=== PATIENT | male | born 1945 | race Caucasian/White ===

== ENCOUNTER → 2022-02-22 | Outpatient (CLI) | payer MEDICARE | END | disposition home or self-care (01) | LOC: LABPAT 11:30 | PROVIDERS: ATTEND Orthopaedic Surgery Orthopaedic Surgery of the Spine | DX: Z53.9 Procedure and treatment not carried out, unspecified reason (principal) ==

== ENCOUNTER → 2022-02-24 | Outpatient (CLI) | payer MEDICARE ==
[2022-02-24 13:47] LABS: Partial Thromboplastin Time 24.8 sec (22.0-30.0); Prothrombin Time 10.6 sec (9.0-12.0)
[2022-02-24 18:38] LABS: Basophils # (A) 0.04 X 10*3/uL (0.00-0.10); Basophils % (A) 0.7 %; Eosinophils # (A) 0.22 X 10*3/uL (0.04-0.35); Eosinophils % (A) 3.9 %; HCT 41.5 % (39.6-50.0); HGB 13.5 g/dL (13.0-17.0); Immature Grans, Automated 0.2 %; Lymphocytes # (A) 1.16 X 10*3/uL (0.90-5.00); Lymphocytes % (A) 20.8 %; MCH 30.2 pg (27.0-32.0); MCHC 32.5 g/dL (32.0-37.0); MCV 92.8 fL (80.0-97.0); Mean Platelet Volume 10.8 fL (9.5-12.2); Monocytes # (A) 0.56 X 10*3/uL (0.20-1.00); NRBC Per 100 WBC 0 /100 WBCS (0.0-0.0); Neutrophils % (A) 64.4 %; Platelet Count 226 X 10*3/uL (140-440); RBC 4.47 X 10*6/uL (4.40-5.60); RDW 12.7 % (11.5-14.5); WBC 5.59 X 10*3/uL (4.50-10.00)
[2022-02-24 19:18] LABS: Albumin 4.3 g/dL (3.8-4.9); Albumin/Globulin Ratio 1.97 (1.60-3.17); Anion Gap 11.4 mmol/L (10.00-18.00); BUN/Creat Ratio 19.4 Ratio (12.00-20.00); Blood Urea Nitrogen 18.6 mg/dL (9.0-27.0); Calcium 9.6 mg/dL (8.7-10.3); Carbon Dioxide 24.2 mmol/L (20.0-27.5); Globulin 2.2 g/dL (1.6-3.3); Non-African American GFR(CKD) 77.7 (60.0-200.0); Potassium 4.2 mmol/L (3.5-5.5); Total Bilirubin 0.3 mg/dL (0.30-1.20); Total Protein 6.5 g/dL (6.2-8.2)
[2022-02-24 20:34] LABS: Appearance,Urine Clear (Clear); Bilirubin,Urine Negative (Negative); Blood,Urine Negative (Negative); Color,Urine Yellow (Yellow); Ketones,Urine Negative (Negative); Nitrite,Urine Negative (Negative); PH, Urine 6.5 (5.0-8.0); Specific Gravity,Urine 1.022 (1.001-1.030); Urobilinogen,Urine 0.2 (0.2,1.0)
== END | disposition home or self-care (01) ==
LOC: LABPAT 12:13
PROVIDERS: ATTEND Orthopaedic Surgery Orthopaedic Surgery of the Spine
DX: Z01.812 Encounter for preprocedural laboratory examination (principal); G95.9 Disease of spinal cord, unspecified; M50.03 Cervical disc disorder with myelopathy, cervicothoracic region
CPT/HCPCS: 80053; 81003; 85025; 85610; 85730

== ENCOUNTER 2022-03-06 06:22 | Inpatient (IN) | payer MEDICARE ==
[~2022-03-06 06:22] MED LIST: ceFAZolin 1,000 MG in SODIUM CHLORIDE 0.9% IRRIGATIO 1,000 ML IRRIGATION PRN
[2022-03-06] MEDS ORDERED: DEXAMETHASONE SOD PHOSPHATE 4 MG/ML 1 ML VIAL IV ONE (06:26)
[2022-03-06] MEDS ORDERED: LIDOCAINE 1% (10MG/ML) FOR IV START INTRADERMA PRN (06:26)
[2022-03-06] MEDS ORDERED: ONDANSETRON 4 MG/2 ML VIAL IVP ONE (06:26)
[2022-03-06] MEDS ORDERED: METOCLOPRAMIDE 5 MG/ML 2 ML VIAL IVP PRN (06:26)
[2022-03-06] MEDS ORDERED: HYDROmorphone 0.5 MG/0.5 ML SYRINGE IVP PRN ×2 (06:26→10:38)
[2022-03-06] MEDS: LACTATED RINGERS 1,000 ML IV SCH (07:18)
[2022-03-06] MEDS ORDERED: LIDOCAINE 2% INJ 20 MG/ML (2 ML VIAL) ONE ×2 (07:29)
[2022-03-06] MEDS ORDERED: DEXAMETHASONE SOD PHOSPHATE 10 MG/ML 1 ML VIAL ONE ×2 (07:29)
[2022-03-06] MEDS ORDERED: ROCURONIUM 10 MG/ML (5 ML VIAL) IV ONE ×2 (07:29)
[2022-03-06] MEDS ORDERED: KETAMINE 10 MG/ML 20 ML VIAL ONE ×2 (07:29)
[2022-03-06] MEDS ORDERED: GLYCOPYRROLATE 0.2 MG/ML 2 ML VIAL ONE ×2 (07:29)
[2022-03-06] MEDS ORDERED: NEOSTIGMINE 1 MG/ML 10 ML VIAL ONE ×2 (07:29)
[2022-03-06] MEDS ORDERED: PROPOFOL 10 MG/ML 20 ML VIAL IV ONE ×2 (07:29)
[2022-03-06] MEDS ORDERED: fentaNYL (PF) 50 MCG/ML 2 ML AMP ONE ×2 (07:29)
[2022-03-06] MEDS ORDERED: HYDROmorphone (PF) 1 MG/ML ONE ×2 (07:29)
[2022-03-06] MEDS ORDERED: SUCCINYLCHOLINE CHLORIDE 100 MG/5 ML SYR IV ONE ×2 (07:29)
[2022-03-06] MEDS ORDERED: MIDAZOLAM 2 MG/2 ML VIAL ONE ×2 (07:29)
[2022-03-06] MEDS ORDERED: ePHEDrine 50 MG/ML 1 ML VIAL ONE ×2 (07:29)
[2022-03-06] MEDS ORDERED: LIDOCAINE 1%-EPI 1:100,000 20 ML VIAL SQ ONE (08:07)
[2022-03-06] MEDS ORDERED: GELATIN SPONGE,ABSORB (LARGE) 1 EACH SPONGE MISCELLANE ONE (08:37)
[2022-03-06] MEDS ORDERED: THROMBIN (BOVINE) 5,000 UNIT VIAL TOPICAL ONE (08:38)
[2022-03-06] MEDS ORDERED: ACETAMINOPHEN TAB 325 MG TAB PO PRN (10:38)
[2022-03-06] MEDS ORDERED: CYCLOBENZAPRINE 10 MG TAB PO PRN (10:38)
[2022-03-06] MEDS ORDERED: ONDANSETRON 4 MG/2 ML VIAL IVP PRN (10:38)
[2022-03-06] MEDS ORDERED: BENZOCAINE/MENTHOL LOZENG 1 EACH LOZENGE MUCOUS MEM PRN (10:38)
[2022-03-06] MEDS ORDERED: HYDROmorphone 1 MG/ML 1 ML SYRINGE IVP PRN (10:38)
[2022-03-06] MEDS ORDERED: HYDROcodone/APAP 5-325MG 1 EACH TAB PO PRN (10:38)
[2022-03-06] MEDS ORDERED: ACETAMINOPHEN TAB 500 MG TAB PO PRN (10:41)
--- NOTE | 2022-03-06 10:49 | P.OP ---
Date of Procedure: 03/06/22 Preoperative Diagnosis: Spinal stenosis C3 4 C4 5 C5 6, degenerative disc disease, neck pain, cervical myelopathy, upper extremity radiculopathy, upper extremity weakness Postoperative Diagnosis: Same Anesthesia: GETA Pathology: none sent Condition: stable Disposition: PACU Description of Procedure: BRIEF OPERATIVE NOTE Preoperative Diagnosis:Spinal stenosis C3 4 C4 5 C5 6, degenerative disc disease, neck pain, cervical myelopathy, upper extremity radiculopathy, upper extremity weakness Postoperative Diagnosis:Spinal stenosis C3 4 C4 5 C5 6, degenerative disc disease, neck pain, cervical myelopathy, upper extremity radiculopathy, upper extremity weakness Procedure: Anterior cervical decompression with discectomy and fusion C3 4 C4 5 C5 6 Placement of interbody graft C3 4 C4 5 C5 6 Application of anterior cervical plate C3 4 C4 5 C5 6 Surgeon: Dr. Kramer Supervisor Special Services: altagracia Shoemaker is present throughout the majority of the the case persistence during positioning, dissection, exposure, visualization, and all crucial elements of the case Estimated blood loss: Approximately 75 mL Complications: None apparent Components implanted: K2M [place] anterior cervical plate system with Vikos interbody allograft bone graft Disposition: To recovery room in good stable condition. OPERATIVE INDICATIONS The patient has had long-standing issues in their neck and upper extremities. He's been having worsening of his symptoms despite aggressive conservative treatment. He is not having significant changes at his cervical spine on imaging with cervical stenosis C3 4 C4 5 C5 6 severe degenerative disc disease at evidence of early myelomalacia which correlated with some signs of myelopathy. The patient has been through conservative treatment. He was having worsening of his symptoms we discussed the possibility of surgical intervention. We discussed various treatment options including surgery, and the patient wishes to proceed with surgery We discussed the risk, patient's alternatives and benefits of surgery including but not limited to, risk of bleeding risk of infection, risk of need for further surgery, risk of decreased, loss of motion, muscle function, malunion nonunion, hardware failure, nerve damage, paralysis, heart attack, and . OPERATIVE SUMMARY After discussing all the risks, patient alternatives and benefits at length, the patient elected to proceed with surgical intervention, signed informed consent, and presented for their procedure. The patient was seen and examined in the preoperative holding area and the surgical site was marked. The patient was given antibiotics and brought to the operating room. The patient was positioned on the operating room table in a supine position being careful to pad any bony prominences and pressure points. The patient was sedated and intubated by anesthesia in standard fashion. Once the airway and C- spine were stabilized the patient's arms were padded and tucked at her side, with her shoulders gently taped. The head was placed in a donut pad with the neck in good neutral alignment and position. We were careful to maintain the patient's cervical spine and good neutral alignment and position throughout. The patient was prepped and draped in a normal standard fashion. An appropriate timeout and keystone protocol performed. We were able to proceed with the surgery. The local wound area was infiltrated with local anesthetic. An incision was made transversely approximately 2-1/2 cm over the appropriate levels at C5. Dissection was taken down subcutaneously to the level of the platysma which was split in line with its fibers. Dissection was taken with a carotid approach, with the trachea and esophagus medial and the carotid sheath laterally. We dissected down to the anterior surface of the vertebral bodies. Intraoperative x-ray was taken which showed a marker at the appropriate level of C5 6. With the appropriate level positively confirmed, we were able to proceed with discectomy at the appropriate levels starting at C3 4 C4 5 C5 6. All of the operative levels were exposed appropriately. There are large anterior cervical osteophytes at each of these levels and they're removed. The patient had all their twitches back, and there was no evidence of recurrent laryngeal issue. The wound was copiously irrigated and suctioned dry as had been done periodically throughout the case. At the appropriate level/levels, starting at C3 4 C4 5 C5 6 . I established an annulotomy with an 11 blade scalpel. A discectomy was performed with a combination of pituitary rongeurs, curettes, a high-speed bur, and Kerrison rongeurs. The posterior longitudinal ligament was taken down as were any posterior osteophytes. This gave good central and bilateral foraminal decompression. There is no evidence of any dural tear or leak. The endplates were prepared with a high-speed bur. With the endplates in good parallel position, I was able to size for the appropriate size interbody graft. The wound was irrigated and suctioned dry the graft was prepared and malleted into position. It had good alignment and position with the anterior surface flush with the anterior surface of the vertebral bodies. This was done similarly the appropriate levels. With the grafts intact, I was able to measure and contour and appropriate sized plate. The plate was positioned at the midline over the appropriate levels. Screw holes were established with a hand drill and drill guide. Screws were placed in good alignment and position with excellent bony purchase. They were seated under the locking device. The construct was checked and found to be stable. Intraoperative x-ray was taken which showed good alignment and position of the implants at the appropriate levels. There was no evidence of any dural tear or leak. Good hemostasis was maintained. The wound was copiously irrigated and suctioned dry as had been done periodically throughout the case. The platysma was closed with absorbable suture. The subcutaneous tissue was closed. The subcuticular tissue was closed with absorbable suture. The wound was cleaned and dried and dressed appropriately. A soft cervical collar was placed appropriately. The patient was woken up by anesthesia, extubated, transferred back gently to their hospital bed and brought to the recovery room in good stable condition. The patient will be admitted to the hospital for appropriate postoperative care, medical management and monitoring. We will continue to follow them closely about the postoperative course.
[2022-03-06] MEDS: SODIUM CHLORIDE 0.9% 1,000 ML IV SCH (14:01)
[2022-03-06] MEDS ORDERED: PSYLLIUM HUSK 100% 6 GM PACKET PO SCH (21:00)
[2022-03-06] MEDS ORDERED: MONTELUKAST 10 MG TAB PO SCH (21:00)
[2022-03-06] MEDS ORDERED: ATORVASTATIN 40 MG TAB PO SCH (21:00)
[2022-03-06] MEDS: METOPROLOL TARTRATE 50 MG TAB PO SCH (22:25)
[2022-03-07] MEDS: SODIUM CHLORIDE 0.9% 1,000 ML IV SCH ×2 (00:37→08:04)
--- NOTE | 2022-03-07 01:32 | XR ---
EXAMINATION TYPE: XR cervical spine 1V DATE OF EXAM: 03/06/2022 COMPARISON: Unavailable INDICATION: Needle placement TECHNIQUE: Single lateral view of the cervical spine FINDINGS: Marked degenerative changes of the cervical spine. A needle was placed opposite C5-6 level. The patie nt is intubated. Sternotomy sutures. IMPRESSION: As above.
--- NOTE | 2022-03-07 01:36 | XR ---
EXAMINATION TYPE: XR cervical spine 1V DATE OF EXAM: 03/06/2022 COMPARISON: X-ray performed earlier the same day INDICATION: Hardware placement TECHNIQUE: Single lateral view of the cervical spine FINDINGS: Interval anterior cervical spine fixation from C3 down to C6 with multilevel disc prosthesis. Acute p ostoperative changes with prevertebral soft tissue swelling. The patient is intubated. IMPRESSION: As above.
[2022-03-07] MEDS ORDERED: PANTOPRAZOLE 40 MG TABLET PO SCH (07:30)
[2022-03-07 08:04] VITALS: BP 169/69; PULSE 60; RESP 20; TEMP 98.2
[2022-03-07] MEDS: LACTATED RINGERS 1,000 ML IV SCH (08:04)
[2022-03-07] MEDS: METOPROLOL TARTRATE 50 MG TAB PO SCH (08:10)
--- NOTE | 2022-03-07 08:40 | P.DS ---
Providers Date of admission: 03/06/22 06:22 Expected date of discharge: 03/07/22 Attending physician: Ben Kramer Primary care physician: Olga Bird - Discharge Diagnosis(es) (1) Cervical myelopathy Current Visit: Yes Status: Acute (2) Cervical stenosis of spinal canal Current Visit: Yes Status: Acute (3) Degenerative cervical disc Current Visit: Yes Status: Acute (4) Upper extremity weakness Current Visit: Yes Status: Acute (5) Radiculopathy affecting upper extremity Current Visit: Yes Status: Acute (6) Status post cervical spinal fusion Current Visit: Yes Status: Acute (7) Cervicalgia Current Visit: Yes Status: Acute (8) Hypertension Current Visit: Yes Status: Acute (9) Hyperlipidemia Current Visit: Yes Status: Acute (10) Coronary artery disease Current Visit: Yes Status: Acute (11) History of heart artery stent Current Visit: Yes Status: Acute (12) History of shortness of breath Current Visit: Yes Status: Acute (13) History of myocardial infarction Current Visit: Yes Status: Acute Hospital Course: This is a pleasant 76-year-old male who presented with C3-4, C4-5, and C5-6 spinal stenosis, cervical degenerative disc disease, cervicalgia, cervical myelopathy, upper extremity radiculopathy and upper extremity weakness who failed outpatient conservative therapy. He was admitted for a C3-4, C4-5, and C5-6 anterior cervical decompression and fusion. The patient tolerated the procedure well and did well postoperatively. His pain has been well-controlled. He feels he has increased sensation in his hands already postoperatively. He does feel his ambulation has been better. He has a history of difficulty with urination postoperatively. Salvador catheter continues to be inserted. This will be discontinued this morning. If the patient is able to void independently today, he is ready for discharge home today. Condition on day of discharge stable. Patient will be discharged home. Patient was cleared preoperatively for surgery by Dr. Bird. Patient currently denies any nausea, vomiting, fever, or chills. Patient is eating and voiding freely without difficulty. Patient may shower Optifoam dressing intact. Patient may remove Optifoam dressing in 3 days and shower without a dressing at that time. Patient may wear his soft cervical collar for comfort support as needed. Patient should refrain from driving until at least after their first follow-up appointment in the office. Patient should avoid excessive neck flexion, extension, rotation, and lateral sidebending; no overhead lifting; no lifting greater than 10 pounds. Patient does have a history of recent right total shoulder arthroplasty and does have some reduced range of motion with weakness of the right shoulder. Patient states prior to his admission to the hospital medication for pain control was sent to his regular pharmacy. I do not see these medications documented as sent or as listed on his home medication list. MAPS has been reviewed today, 03/07/2022, with an Overall Overdose Risk Score of 280. An "Opiod Start Talking" Form has been signed and placed in the patient's chart. A prescription has been written for Tippo 5 mg/325 mg 1 every 4 hours as needed for pain, dispensed #42. Patient is also given a prescription for cyclobenzaprine 10 mg 1 3 times a day as needed for muscle spasm, dispensed #60. Patient's other medical diagnoses include hypertension, hyperlipidemia, coronary artery disease, history of cardiac stent, history of shortness of breath, and history of myocardial infarction. Physical Exam on day of discharge: Patient is awake, alert, and oriented 3 Vital signs stable Good chest excursion with deep inspiration and expiration Adequate range of motion of the cervical spine with adequate flexion, extension, and bilateral rotation Patient is able to perform active range of motion of the bilateral upper extremities but does have weakness with his right shoulder Soft cervical collar intact and is removed during physical examination Incision is clean, dry, and intact; no erythema, purulence, or signs of infection Mild generalized swelling around the surgical site Optifoam dressing intact Procedures: C3-4, C4-5, and C5-6 anterior cervical decompression and fusion Patient Condition at Discharge: Stable Plan - Discharge Summary Discharge Rx Participant: No New Discharge Prescriptions: New Cyclobenzaprine [Flexeril] 10 mg PO TID PRN #60 tab PRN Reason: Muscle Spasm HYDROcodone/APAP 5-325MG [Tippo 5] 1 each PO Q4HR PRN #42 tab PRN Reason: Pain No Action Esomeprazole Magnesium [NexIUM] 40 mg PO DAILY Lisinopril [Zestril] 40 mg PO DAILY Aspirin 81 mg PO DAILY Metoprolol Tartrate [Lopressor] 100 mg PO BID Multivitamin [Men's Multi-Vitamin] 1 each PO DAILY Montelukast [Singulair] 10 mg PO HS Clopidogrel [Plavix] 75 mg PO DAILY Psyllium Husk [Metamucil] 0.4 gm PO HS Ipratropium [place] 0.06%Nasal [Atrovent Nasal 0.06%] 2 spray EA NOSTRIL DAILY Cetirizine HCl [Zyrtec] 10 mg PO DAILY Atorvastatin [Lipitor] 40 mg PO HS Acetaminophen [Tylenol] 500 mg PO Q4-6H PRN PRN Reason: Pain Discharge Medication List Aspirin 81 mg PO DAILY 06/19/14 [History] Esomeprazole Magnesium [NexIUM] 40 mg PO DAILY 06/19/14 [History] Lisinopril [Zestril] 40 mg PO DAILY 06/19/14 [History] Metoprolol Tartrate [Lopressor] 100 mg PO BID 06/19/14 [History] Multivitamin [Men's Multi-Vitamin] 1 each PO DAILY 06/19/14 [History] Atorvastatin [Lipitor] 40 mg PO HS 03/02/22 [History] Cetirizine HCl [Zyrtec] 10 mg PO DAILY 03/02/22 [History] Clopidogrel [Plavix] 75 mg PO DAILY 03/02/22 [History] Ipratropium [place] 0.06%Nasal [Atrovent Nasal 0.06%] 2 spray EA NOSTRIL DAILY 03/02/22 [History] Montelukast [Singulair] 10 mg PO HS 03/02/22 [History] Psyllium Husk [Metamucil] 0.4 gm PO HS 03/02/22 [History] Acetaminophen [Tylenol] 500 mg PO Q4-6H PRN 03/06/22 [History] Cyclobenzaprine [Flexeril] 10 mg PO TID PRN #60 tab 03/07/22 [Rx] HYDROcodone/APAP 5-325MG [Tippo 5] 1 each PO Q4HR PRN #42 tab 03/07/22 [Rx] Follow up Appointment(s)/Referral(s): Rosales Torres, FREDERIC [PHYSICIAN [employer]] - 2 Weeks (Patient may follow-up with Rosales Torres PA-C or Dr. Linwood Kramer at [facility] in 2-3 weeks following discharge. ) Activity/Diet/Wound Care/Special Instructions: 1. Patient may shower with Optifoam dressing intact. 2. Patient may remove Optifoam dressing in 3 days and shower without a dressing at that time. 3. Patient may wear soft cervical collar for comfort support as needed. 4. Patient should refrain from driving until at least after their first follow- up appointment in the office. 5. Patient should avoid excessive cervical flexion, extension, and side bending; avoid overhead lifting; no lifting greater than 10 pounds 6. Take medications as prescribed 7. Patient should avoid anti-inflammatory medications over the next 6 weeks postoperatively 8. Do not soak in tub Discharge Disposition: HOME SELF-CARE
[2022-03-07] MEDS ORDERED: IPRATROPIUM BROMIDE 0.06% NASAL SPRAY (15 ML) EA NOSTRIL SCH (09:00)
[2022-03-07] MEDS ORDERED: ASPIRIN 81 MG PO SCH (09:00)
[2022-03-07] MEDS ORDERED: CLOPIDOGREL 75 MG TAB PO SCH (09:00)
[2022-03-07] MEDS ORDERED: LORATADINE 10 MG TAB PO SCH (09:00)
[2022-03-07] MEDS ORDERED: MULTIVITAMINS, THERA 1 EACH TAB PO SCH (09:00)
[2022-03-07] MEDS ORDERED: SENNOSIDES-DOCUSATE SODIUM 1 EACH TAB PO SCH (09:00)
[2022-03-07] MEDS ORDERED: lisinopriL 20 MG TAB PO SCH (09:00)
== END 2022-03-07 12:11 | disposition home or self-care (01) | DRG 472 ==
LOC: 2ORMAIN 06:22 → EDSTATUS 07:30 → 4SSUR 13:57
PROVIDERS: ADMIT Orthopaedic Surgery Orthopaedic Surgery of the Spine; ATTEND Orthopaedic Surgery Orthopaedic Surgery of the Spine
PROC: 0RT30ZZ Resection of Cervical Vertebral Disc, Open Approach (ICD-10-PCS; 2022-03-06)
PROC: 0RG20A0 Fusion of 2 or more Cervical Vertebral Joints with Interbody Fusion Device, Anterior Approach, Anterior Column, Open Approach (ICD-10-PCS; principal; 2022-03-06 07:30)
DX: M48.02 Spinal stenosis, cervical region (principal); M50.01 Cervical disc disorder with myelopathy, high cervical region; E78.5 Hyperlipidemia, unspecified; I10 Essential (primary) hypertension; I25.10 Atherosclerotic heart disease of native coronary artery without angina pectoris; J30.9 Allergic rhinitis, unspecified; M19.90 Unspecified osteoarthritis, unspecified site; H91.90 Unspecified hearing loss, unspecified ear; K21.9 Gastro-esophageal reflux disease without esophagitis; M50.11 Cervical disc disorder with radiculopathy, high cervical region; Z96.611 Presence of right artificial shoulder joint; I25.2 Old myocardial infarction; Z95.5 Presence of coronary angioplasty implant and graft; Z79.82 Long term (current) use of aspirin; Z79.02 Long term (current) use of antithrombotics/antiplatelets; Z79.899 Other long term (current) drug therapy
CPT/HCPCS: 72020; 86850; 86900; 86901

== ENCOUNTER 2022-03-13 12:38 | Inpatient (IN) | payer MEDICARE ==
[2022-03-13] MEDS ORDERED: oxyCODONE-APAP 5-325MG 1 EACH TAB PO PRN (16:10)
[2022-03-13] MEDS ORDERED: NALOXONE 0.4 MG/ML 1 ML VIAL IV PRN (16:10)
[2022-03-13] MEDS ORDERED: ACETAMINOPHEN TAB 325 MG TAB PO PRN (16:10)
[2022-03-13 16:59] LABS: ALT 11 U/L (4-49); AST 23 U/L (17-59); African American GFR (CKD) >90 (>60 ml/min/1.73 sqM); Albumin 3.8 g/dL (3.5-5.0); Alkaline Phosphatase 96 U/L (38-126); Anion Gap 14 mmol/L; Blood Urea Nitrogen 18 mg/dL (9-20); Calcium 9.5 mg/dL (8.4-10.2); Carbon Dioxide 20 mmol/L (22-30); Chloride 104 mmol/L (98-107); Glucose 88 mg/dL (74-99); Non-African American GFR(CKD) 88 (>60 ml/min/1.73 sqM); Potassium 4.1 mmol/L (3.5-5.1); Sodium 138 mmol/L (137-145); Total Bilirubin 0.5 mg/dL (0.2-1.3); Total Protein 6.6 g/dL (6.3-8.2)
[2022-03-13 17:03] LABS: INR 1.1 (<1.2); Partial Thromboplastin Time 25.4 sec (22.0-30.0)
[2022-03-13 17:07] LABS: Basophils % (A) 0 %; Eosinophils # (A) 0.3 k/uL (0-0.7); Eosinophils % (A) 3 %; HCT 41.9 % (39.0-53.0); HGB 14.2 gm/dL (13.0-17.5); Lymphocytes % (A) 11 %; MCH 31.6 pg (25.0-35.0); MCV 92.9 fL (80.0-100.0); Mean Platelet Volume 8.3; Monocytes # (A) 0.6 k/uL (0-1.0); Monocytes % (A) 7 %; Neutrophils # (A) 6.6 k/uL (1.3-7.7); Neutrophils % (A) 76 %; Platelet Count 270 k/uL (150-450); RBC 4.51 m/uL (4.30-5.90); RDW 13.3 % (11.5-15.5); WBC 8.6 k/uL (3.8-10.6)
--- NOTE | 2022-03-13 17:12 | XR ---
EXAMINATION TYPE: XR cervical spine comp DATE OF EXAM: 03/13/2022 4:59 PM INDICATION: Patient age:Male; 76 years old; Reason for study: fall weakness recent surgery; COMPARISON: Neck radiograph 03/06/2022. TECHNIQUE: The cervical spine was imaged in 4 projections. Frontal, odontoid, lateral and bilateral o bliques. FINDINGS: Fixation hardware within the cervical spine extending from C3 to C6. Hardware appears intac t. The osseous structures show normal pulsatile alignment without evidence of an acute fracture. There a re osteophytes noted throughout the cervical spine on the anterior and lateral aspects of the vertebr al bodies. Pedicles are intact. Soft tissues are within normal limits. The odontoid appears intact. IMPRESSION: 1. No fracture or dislocation. 2. Postsurgical changes with hardware intact. 3. Moderate degenerative disc disease changes of the cervical spine.
[2022-03-13] MEDS ORDERED: HYDROcodone/APAP 5-325MG 1 EACH TAB PO PRN ×2 (17:53→17:59)
[2022-03-13] MEDS ORDERED: ONDANSETRON 4 MG/2 ML VIAL IVP PRN (17:53)
[2022-03-13] MEDS ORDERED: HYDROmorphone 0.5 MG/0.5 ML SYRINGE IVP PRN (17:53)
[2022-03-13] MEDS ORDERED: ACETAMINOPHEN TAB 500 MG TAB PO PRN (17:59)
[2022-03-13] MEDS: HYDROmorphone 1 MG/ML 1 ML SYRINGE IVP PRN ×2 (18:06→20:33)
--- NOTE | 2022-03-13 18:11 | P.CNOR ---
History of Present Illness - [facility] Consult date: 03/13/22 Consult reason: other History of present illness: Patient is seen and examined at bedside in the emergency room. He is well known to our service as he underwent anterior cervical decompression and fusion one week ago for his cervical myelopathy and severe cervical stenosis. Patient has long history of cervical issues and had weakness at his upper and lower extremities with evidence of myelopathy and myelomalacia. He underwent anterior cervical decompression with discectomy and fusion and is now postoperative day #7. He left postoperative day 1 as per his surgery and he felt that he was doing quite well. He was able to eat some eggs that day and was also able to walk around the room and felt quite good as per the patient. He says when he got home he was actually able to get around and do some typing and light activity. However on Sunday he started to deteriorate and is having some worsening issues with pain at his neck and difficulty with his arms. He says that he had multiple falls at home and was having difficulty with any sort of swallowing. He is known to have heart disease and history of coronary artery bypass grafting and does take Plavix blood thinner. Patient says that he had a couple of falls at home and actually hit his neck. He feels that his symptoms worsened after that. He says that he has been having worsening difficulty eating at home and this was able to eat yogurt. He says his hands have become a bit cramped and he has lost some of function in his hands as well. This is started on Sunday last week and has maintained its status. He has pain at his neck and it is having increasing difficulty swallowing. He denies any shortness of breath. He denies a problems with his breathing. He called our office today in regards to his issues and we instructed him to present to the emergency room where he was seen today. Here in the emergency room we have ordered starting steroids and further imaging of his cervical spine. Review of Systems As per HPI. His symptoms in his bilateral upper extremities his pain at the base of his neck. He says his legs are doing pretty well but sometimes it will feel like to give out on him. He says the neck pain travels between the shoulder blades. He has pain at his anterior neck when he coughs. He says he is unable swallow well. Says his hands feel like they've weakened and has been having worsening function last week. Past Medical History Past Medical History: Coronary Artery Disease (CAD), Cancer, GERD/Reflux, Hearing Disorder / Deafness, Hyperlipidemia, Hypertension, Myocardial Infarction ([place]), Osteoarthritis (OA) Additional Past Medical History / Comment(s): hx. 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 LT SHOULDER SURG. CTR SHERRY. LT FOOT SURG. UVULA REMOVED, quad bypass 2016, right shoulder re placement December 2021, several colonoscopies, cervical fusion sx 03/06/2022 Past Anesthesia/Blood Transfusion Reactions: Previous Problems w/ Anesthesia Additional Past Anesthesia/Blood Transfusion Reaction / Comm: trouble urinating after recent shoulder replacement in December & had to be cathed, trouble waking up once in past Date of Last Stent Placement:: 2009 Past Psychological History: No Psychological Hx Reported Smoking Status: Former smoker Past Alcohol Use History: None Reported Past Drug Use History: None Reported - Past Family History Mother Family Medical History: Cancer Medications and Allergies Home Medications Medication Instructions Recorded Confirmed Type Aspirin 81 mg PO DAILY 06/19/14 03/13/22 History Esomeprazole Magnesium [NexIUM] 20 mg PO DAILY 06/19/14 03/13/22 History Lisinopril [Zestril] 40 mg PO DAILY 06/19/14 03/13/22 History Metoprolol Tartrate [Lopressor] 100 mg PO BID 06/19/14 03/13/22 History Multivitamin [Men's Multi-Vitamin] 1 tab PO DAILY 06/19/14 03/13/22 History Atorvastatin [Lipitor] 40 mg PO HS 03/02/22 03/13/22 History Cetirizine HCl [Zyrtec] 10 mg PO DAILY 03/02/22 03/13/22 History Clopidogrel [Plavix] 75 mg PO DAILY 03/02/22 03/13/22 History Ipratropium [place] 0.06%Nasal 1 spray EA NOSTRIL DAILY 03/02/22 03/13/22 History [Atrovent Nasal 0.06%] Montelukast [Singulair] 10 mg PO HS 03/02/22 03/13/22 History Psyllium Husk [Metamucil] 0.4 gm PO HS 03/02/22 03/13/22 History Acetaminophen [Tylenol] 500 mg PO Q4-6H PRN 03/06/22 03/13/22 History HYDROcodone/APAP 5-325MG [Somis 5] 1 tab PO Q4HR PRN 03/13/22 03/13/22 History Allergies Allergy/AdvReac Type Severity Reaction Status Date / Time aspirin AdvReac Abdominal Verified 03/13/22 17:30 Pain cyclobenzaprine AdvReac "Lost Verified 03/13/22 17:30 [From Flexeril] control of his body" sleeping pill-name unknown AdvReac dizzy, N/V Uncoded 03/13/22 17:30 Physical Examination Osteopathic Statement: *. No significant issues noted on an osteopathic structural exam other than those noted in the History and Physical/Consult. - C Spine: dermatomal strength & reflexes bilateral Shoulder strength: flexion: 3/5 (His neck incision site is clean. He has swelling around the area is somewhat firm. It is not expanding. It is no er ythema. It is not under any significant tension. His trachea did not appear to be shifted.) Wrist strength: ulnar deviation: 3/5 (Weakness at his interosseous with spreading his fingers and extend his fingers has 2+ out of 5. Quad Stayer strength of 3 out of 5) Strength: wood filler: 3/5 (His bilateral wood filler strength is diminished. He has positive Juan Carlos sign. He is negative hyperreflexia. Negative Babinski's in his lower extremity is. He is able lift up his arms and flex and extend his elbows wrists. When he is unable to extend his fingers fully. He has some weakness at his i) Results - Labs Labs: Abnormal Lab Results - Last 24 Hours (Table) 03/13/22 Range/Units 16:39 Carbon Dioxide 20 L (22-30) mmol/L H & H 03/13/22 Range/Units 16:39 Hgb 14.2 (13.0-17.5) gm/dL Hct 41.9 (39.0-53.0) % Coagulation 06/13/22 Range/Units 16:39 INR 1.1 (<1.2) Result Diagrams: 03/13/22 16:39 03/13/22 16:39 - Diagnostic results Cervical AP/lateral x-ray: report reviewed, image reviewed (Imaging of the cervical spine shows hardware intact and see 34 C4 5 C5 6 appears being good alignment good position. There is no change of position there is no evidence of loosening. No new fracture.) Assessment and Plan Assessment: Cervical myelopathy with severe cervical stenosis status post anterior cervical decompression with discectomy and fusion C3 4 C4 5 C5 6 Worsening symptoms at his upper extremities despite early initial improvement postop Hematoma at his anterior neck surgical site Bilateral upper extremity weakness Myelopathy History of severe cardiac issues and cardiac bypass Patient currently on blood thinners with Plavix Plan: Cervical myelopathy with severe cervical stenosis status post anterior cervical decompression with discectomy and fusion C3 4 C4 5 C5 6 Worsening symptoms at his upper extremities despite early initial improvement postop Hematoma at his anterior neck surgical site Bilateral upper extremity weakness Myelopathy History of severe cardiac issues and cardiac bypass Patient currently on blood thinners with Plavix The patient has been having worsening of his symptoms after he returned home. He had initially been doing quite well the day and Sunday postoperative day #1 after his anterior cervical surgery. He was actually doing some typing. However he sustained some falls on Sunday and had worsening of his symptoms. He says that he had his neck and may have generated a significant hematoma at the area. He has had some neurologic worsening last week as well this has remained essentially over the past week and has not been making improvement. He is having significant difficulty swallowing as well and has had limited diet over the past week. He denies any chest pain shortness breath and I think we need further imaging of his cervical spine. His initial x-rays of his neck appear to be stable at the cervical site. We need to obtain a new computed tomography scan to evaluate further tissue as anterior cervical neck and around his cord. He may need irrigation and debridement of the hematoma at his anterior neck to help with the swelling. He may have some benefit with IV steroid medication help alleviate some of the neurologic issues. We'll need new imaging to see if there is other changes around the surgical site. He does not appear infectious. We will have to hold his blood thinner today and keep close eye on his function. We will see with the new imaging looks like and see how he was asked to the steroid medication. We will try to control his pain with oral and IV medicatio n. I'll obtain a new PT PTT and INR as we will have to consider the possibility of further surgery. We will have him nothing by mouth after midnight tonight.
[2022-03-13] MEDS: SODIUM CHLORIDE 0.9% 1,000 ML IV SCH (18:12)
[2022-03-13] MEDS: methylPREDNISolone SOD SUCCI 125 MG/2 ML VIAL IV SCH (18:12)
--- NOTE | 2022-03-13 18:17 | ED ---
General Adult HPI - General Chief complaint: Recheck/Abnormal Lab/Rx Stated complaint: post op neck pain Time Seen by Provider: 03/13/22 14:53 Source: patient Mode of arrival: ambulatory Limitations: no limitations - History of Present Illness Initial comments: Patient is a pleasant 76-year-old male who recently underwent anterior neck evaluated approach discectomy and fusion C3 through C6. Since going home he had multiple episodes of generalized weakness and falls 2. He reports after his second fall he has had a decrease in ability to swallow along with upper extremity weakness and difficulty moving his last 3 digits on both hands. He d enies any dizziness or syncopal episodes prior to falling. He states that his weakness thinks is different from presurgery and has gotten progressively worse since his last fall. He has a past medical history besides his cervical stenosis significant for CAD, myocardial infarction, GERD, hypertension, and arthritis. He denies any difficulty in breathing. There weakness and gait will not be assessed but he does complain of generalized weakness and difficulty bearing weight without any overt unsteadiness. He and his deny any other complaints or concerns at this time. - Related Data Home Medications Medication Instructions Recorded Confirmed Aspirin 81 mg PO DAILY 06/19/14 03/13/22 Esomeprazole Magnesium [NexIUM] 20 mg PO DAILY 06/19/14 03/13/22 Lisinopril [Zestril] 40 mg PO DAILY 06/19/14 03/13/22 Metoprolol Tartrate [Lopressor] 100 mg PO BID 06/19/14 03/13/22 Multivitamin [Men's Multi-Vitamin] 1 tab PO DAILY 06/19/14 03/13/22 Atorvastatin [Lipitor] 40 mg PO HS 03/02/22 03/13/22 Cetirizine HCl [Zyrtec] 10 mg PO DAILY 03/02/22 03/13/22 Clopidogrel [Plavix] 75 mg PO DAILY 03/02/22 03/13/22 Ipratropium [place] 0.06%Nasal 1 spray EA NOSTRIL DAILY 03/02/22 03/13/22 [Atrovent Nasal 0.06%] Montelukast [Singulair] 10 mg PO HS 03/02/22 03/13/22 Psyllium Husk [Metamucil] 0.4 gm PO HS 03/02/22 03/13/22 Acetaminophen [Tylenol] 500 mg PO Q4-6H PRN 03/06/22 03/13/22 HYDROcodone/APAP 5-325MG [[place] 5] 1 tab PO Q4HR PRN 03/13/22 03/13/22 Allergies Allergy/AdvReac Type Severity Reaction Status Date / Time aspirin AdvReac Abdominal Verified 03/13/22 17:30 Pain cyclobenzaprine AdvReac "Lost Verified 03/13/22 17:30 [From Flexeril] control of his body" sleeping pill-name unknown AdvReac dizzy, N/V Uncoded 03/13/22 17:30 Review of Systems ROS Statement: Those systems with pertinent positive or pertinent negative responses have been documented in the HPI. ROS Other: All systems not noted in ROS Statement are negative. Past Medical History Past Medical History: Coronary Artery Disease (CAD), Cancer, GERD/Reflux, Hearing Disorder / Deafness, Hyperlipidemia, Hypertension, Myocardial Infarction ([place]), Osteoarthritis (OA) Additional Past Medical History / Comment(s): hx. 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 LT SHOULDER SURG. CTR SHERRY. LT FOOT SURG. UVULA REMOVED, quad bypass 2016, right shoulder replacement December 2021, several colonoscopies, cervical fusion sx 03/06/2022 Past Anesthesia/Blood Transfusion Reactions: Previous Problems w/ Anesthesia Additional Past Anesthesia/Blood Transfusion Reaction / Comment(s): trouble urinating after recent shoulder replacement in December & had to be cathed, trouble waking up once in past Date of Last Stent Placement:: 2009 Past Psychological History: No Psychological Hx Reported Smoking Status: Former smoker Past Alcohol Use History: None Reported Past Drug Use History: None Reported - Past Family History Mother Family Medical History: Cancer General Exam Limitations: no limitations General appearance: alert, in no apparent distress Head exam: Present: atraumatic, normocephalic Eye exam: Present: PERRL, EOMI ENT exam: Present: other (Edema and erythema noted with swelling to anterior right neck. Incision intact without any exudate.) Neck exam: Present: tenderness, lymphadenopathy. Absent: full ROM Respiratory exam: Present: normal lung sounds bilaterally. Absent: respiratory distress, wheezes, rales, rhonchi, stridor Cardiovascular Exam: Present: regular rate, normal rhythm, systolic murmur (III/). Absent: diastolic murmur, rubs, gallop, clicks GI/Abdominal exam: Present: soft, normal bowel sounds. Absent: distended, tenderness, guarding, rebound, rigid Extremities exam: Present: other (Bilateral lower [place] strength 4 out of 5. Upper extremities. 5 right weaker than left. Inability to contract last 3 digits on bilateral hands.). Absent: pedal edema, joint swelling Neurological exam: Present: alert, CN II-XII intact, other (Gait not assessed due to weakness) Psychiatric exam: Present: normal affect, normal mood Skin exam: Present: warm, erythema (Diffuse to neck without any evidence of hematoma or infection. Incision well approximated) Course Vital Signs 03/13/22 13:10 Temperature 98.2 F Pulse Rate 108 H Respiratory 20 Rate Blood Pressure 150/71 Medical Decision Making - Medical Decision Making Due to upper extremity myopathy and difficulty swallowing. With our regarding concerns for possible need for repeat surgery. Discussed case with Missy BARON. She discussed case with Dr. Kramer who advised observation admission with cervica l spine x-ray at the time IV steroid order to be replaced by orthopedic PA. Cervical spine no fracture or dislocation. Postsurgical changes with hardware intact. Moderate degenerative changes of cervical spine. Dr. Kramer called after reviewing imaging requesting order for CT of cervical spine. Patient having pain with difficulty in swallowing we'll give IV pain medication. Dr. Kramer advised to change from inpatient admission to from observation to admit due to myopathy. Patient to be admitted to [facility] hospitalist Dr. Zhang notified of admission with consult to orthopedic. - Lab Data Result diagrams: 03/13/22 16:39 03/13/22 16:39 Lab Results 03/13/22 03/13/22 03/13/22 Range/Units 16:39 16:39 16:39 WBC 8.6 (3.8-10.6) k/uL RBC 4.51 (4.30-5.90) m/uL Hgb 14.2 (13.0-17.5) gm/dL Hct 41.9 (39.0-53.0) % MCV 92.9 (80.0-100.0) fL MCH 31.6 (25.0-35.0) pg MCHC 34.0 (31.0-37.0) g/dL RDW 13.3 (11.5-15.5) % Plt Count 270 (150-450) k/uL MPV 8.3 Neutrophils % 76 % Lymphocytes % 11 % Monocytes % 7 % Eosinophils % 3 % Basophils % 0 % Neutrophils # 6.6 (1.3-7.7) k/uL Lymphocytes # 1.0 (1.0-4.8) k/uL Monocytes # 0.6 (0-1.0) k/uL Eosinophils # 0.3 (0-0.7) k/uL Basophils # 0.0 (0-0.2) k/uL PT 12.0 (9.0-12.0) sec INR 1.1 (<1.2) APTT 25.4 (22.0-30.0) sec Sodium 138 (137-145) mmol/L Potassium 4.1 (3.5-5.1) mmol/L Chloride 104 (98-107) mmol/L Carbon Dioxide 20 L (22-30) mmol/L Anion Gap 14 mmol/L BUN 18 (9-20) mg/dL Creatinine 0.80 (0.66-1.25) mg/dL Est GFR (CKD-EPI)AfAm >90 (>60 ml/min/1.73 sqM) Est GFR (CKD-EPI)NonAf 88 (>60 ml/min/1.73 sqM) Glucose 88 (74-99) mg/dL Calcium 9.5 (8.4-10.2) mg/dL Total Bilirubin 0.5 (0.2-1.3) mg/dL AST 23 (17-59) U/L ALT 11 (4-49) U/L Alkaline Phosphatase 96 (38-126) U/L Total Protein 6.6 (6.3-8.2) g/dL Albumin 3.8 (3.5-5.0) g/dL - Radiology Data Radiology results: report reviewed, image reviewed Cervical spine no acute fracture or dislocation. Postsurgical changes with hardware intact. Moderate degenerative disc disease changes of cervical spine Disposition Clinical Impression: Cervical disc disease with myelopathy Disposition: ADMITTED IP TO THIS HOSP Condition: Stable Referrals: Olga Bird DO [Primary Care Provider] - 1-2 days Time of Disposition: 18:19
--- NOTE | 2022-03-13 18:48 | CT ---
EXAMINATION TYPE: CT cervical spine wo con CT DLP: 481 mGycm, Automated exposure control for dose reduction was used. DATE OF EXAM: 03/13/2022 6:38 PM COMPARISON: Cervical spine radiographs 1322.. CLINICAL INDICATION:Male, 76 years old with history of pain swelling weakness post op; pain swelling weakness post op TECHNIQUE: Axial CT images from the skull base to the inferior aspect of T2 we obtained without intra venous contrast. Coronal and sagittal reformatted images were also reviewed. FINDINGS: Fracture: None. Osseous structures: Post fixation changes to C3-C6 with disc spacers in place at these levels. Hardwa re appears intact There are osteophytes posterior to C5 and C6 with at least moderate to severe spina l canal stenosis. There is narrowing of the spinal canal at the level of C4 with soft tissue fullness suggested. These findings are suboptimally visualized due to streak artifact and CT technique. Vertebral alignment: Within normal limits. Spinal canal/Neural Foramina: No evidence of significant spinal canal narrowing. Facet joint uncovert ebral joint arthropathy scattered throughout the cervical spine with varying degrees of neural forami nal stenosis. Neck soft tissues: Prevertebral soft tissues are within normal limits. Other: The airway is patent. The lung apices are clear. IMPRESSION: Postsurgical changes with at least moderate to severe spinal canal stenosis posterior to C4, C5 and C 6 with osteophytes at C5-C6 and soft tissue fullness to the spinal canal at C4
[2022-03-13 19:32] LABS: Basophils % (A) 1 %; Eosinophils # (A) 0.2 k/uL (0-0.7); Eosinophils % (A) 3 %; HGB 13.6 gm/dL (13.0-17.5); Lymphocytes # (A) 0.6 k/uL (1.0-4.8); Lymphocytes % (A) 7 %; MCH 30.8 pg (25.0-35.0); MCHC 33.2 g/dL (31.0-37.0); MCV 92.8 fL (80.0-100.0); Mean Platelet Volume 7.9; Monocytes # (A) 0.4 k/uL (0-1.0); Monocytes % (A) 5 %; Neutrophils # (A) 6.4 k/uL (1.3-7.7); Neutrophils % (A) 83 %; Platelet Count 269 k/uL (150-450); RBC 4.42 m/uL (4.30-5.90); RDW 13.1 % (11.5-15.5); WBC 7.7 k/uL (3.8-10.6)
[2022-03-13 19:35] LABS: INR 1.1 (<1.2); Prothrombin Time 12.1 sec (9.0-12.0)
[2022-03-13 19:42] LABS: African American GFR (CKD) >90 (>60 ml/min/1.73 sqM); Anion Gap 11 mmol/L; Blood Urea Nitrogen 16 mg/dL (9-20); Calcium 8.6 mg/dL (8.4-10.2); Carbon Dioxide 20 mmol/L (22-30); Chloride 106 mmol/L (98-107); Glucose 90 mg/dL (74-99); Non-African American GFR(CKD) >90 (>60 ml/min/1.73 sqM); Potassium 3.9 mmol/L (3.5-5.1); Sodium 137 mmol/L (137-145)
[2022-03-13] MEDS: ATORVASTATIN 40 MG TAB PO SCH (21:25)
[2022-03-13] MEDS: METOPROLOL TARTRATE 50 MG TAB PO SCH (21:26)
[2022-03-13] MEDS: MONTELUKAST 10 MG TAB PO SCH (21:26)
[2022-03-13] MEDS: PSYLLIUM HUSK 100% 6 GM PACKET PO SCH (21:26)
[2022-03-14] MEDS: methylPREDNISolone SOD SUCCI 125 MG/2 ML VIAL IV SCH ×3 (02:48→23:06)
[2022-03-14] MEDS: SODIUM CHLORIDE 0.9% 1,000 ML IV SCH ×4 (02:50→23:38)
[2022-03-14] MEDS ORDERED: bisacodyL 10 MG SUPP RECTAL PRN (06:59)
--- NOTE | 2022-03-14 07:06 | P.PN ---
Progress Note - Text Progress Note Date: 03/14/22 The patient is seen and examined today at bedside. He says the pain is a little bit less at his neck was able to drink down some fluids. He says his hands not changed he saw having contractures at his ulnar aspect of his hand and fingers. He is still having difficulty with his swallowing. On exam his some flexion curling at his middle ring and small fingers bilateral hands he is unable to extend his fingers significant pain. He has minimal wrist extension as well. He is able lift his arms bilaterally. His legs appear to be fully neurovascularly intact. His neck still has fullness on the right side around the incision site. It is firm underneath the incision site unchanged from yesterday Assessment plan Postoperative day #8 status post anterior cervical decompression and fusion C34 C4 5 C5 6 for his cervical myelopathy and severe cervical stenosis Firm hematoma at the incision site at the right anterior neck with dysphagia Neurologic decline since last week after a fall at home Cervical myelopathy with myelomalacia Bilateral upper extremity weakness History of coronary artery disease status post CABG Blood thinners held yesterday Constipation. The patient has firm hematoma at his anterior cervical incision site and has had some worsening of his swallowing and his neurologic status after sustaining a fall at home. He initially went home postoperative day #1 and was doing well postoperatively but had declined last week which has not been resolving. Last night we started further treatment with medication and steroid and further pain control. He feels his pain is improved but his neurologic function is not changing. He saw having difficulty with swallowing though he was able to drink some fluids last night. With the hematoma at his neck at think that should be evacuated operatively and we'll plan for surgical intervention today. I'm going to review the computed tomography scan further with radiology and try to determine if there is new compression at cervical spine. May need to consider revising the decompression at surgery today. I discussed this with him and answered his questions he understands. We will plan to pursue surgery today. We'll keep him nothing by mouth today and continues medications as well. Also patient reports hip that he has not had a bowel movement in the past week. He is able to pass gas and he is voiding freely. He is not having changed his legs. He is not having loss of control of his bowels however he has not been eating over the past week as well and has been taking pain medications. We'll give him some senna as well as suppository to see if this can help.
[2022-03-14] MEDS: IPRATROPIUM BROMIDE 0.06% NASAL SPRAY (15 ML) EA NOSTRIL SCH (11:15)
[2022-03-14] MEDS: SENNOSIDES-DOCUSATE SODIUM 1 EACH TAB PO SCH ×2 (11:16→11:32)
[2022-03-14] MEDS: LORATADINE 10 MG TAB PO SCH ×2 (11:16→11:31)
[2022-03-14] MEDS: MULTIVITAMINS, THERA 1 EACH TAB PO SCH ×2 (11:16→11:31)
[2022-03-14] MEDS: METOPROLOL TARTRATE 50 MG TAB PO SCH ×2 (11:16→23:28)
[2022-03-14] MEDS: lisinopriL 20 MG TAB PO SCH ×2 (11:16→11:31)
[2022-03-14] MEDS: PANTOPRAZOLE 40 MG TABLET PO SCH (11:16)
--- NOTE | 2022-03-14 12:32 | P.HPIM ---
History of Present Illness Patient was [id number] male came in the with complaints of dysphagia MRI to anterior neck hematoma and mass and increasing weakness and bilateral lower extremity is in upper extremities. Patient had a recent cervical decompression discectomy and fusion presently postoperative day 8 patient started having increasing neck swelling probably be a hematoma. Patient does have tingling numbness which has been there even before surgery. Patient was evaluated by senior publications specialist and patient is being taken to surgery today. Patient has coronary artery bypass grafting but didn't have any cardiac catheterization recently but patient is on dual antiplatelet therapy. REVIEW OF SYSTEMS: CONSTITUTIONAL: No fever, no malaise, no fatigue. HEENT: No recent visual problems or hearing problems. Denied any sore throat. CARDIOVASCULAR: No chest pain, orthopnea, PND, no palpitations, no syncope. PULMONARY: No shortness of breath, no cough, no hemoptysis. GASTROINTESTINAL: No diarrhea, no nausea, no vomiting, no abdominal pain. NEUROLOGICAL: No headaches, HEMATOLOGICAL: Denies any bleeding or petechiae. GENITOURINARY: Denies any burning micturition, frequency, or urgency. MUSCULOSKELETAL/RHEUMATOLOGICAL: Denies any joint pain, swelling, or any muscle pain. ENDOCRINE: Denies any polyuria or polydipsia. The rest of the 14-point review of systems is negative. PHYSICAL EXAMINATION: GENERAL: The patient is alert and oriented x3, not in any acute distress. Well developed, well nourished. HEENT: Pupils are round and equally reacting to light. EOMI. No scleral icterus. No conjunctival pallor. Normocephalic, atraumatic. No pharyngeal erythema. No thyromegaly. Anterior neck swelling CARDIOVASCULAR: S1 and S2 present. No murmurs, rubs, or gallops. PULMONARY: Chest is clear to auscultation, no wheezing or crackles. ABDOMEN: Soft, nontender, nondistended, normoactive bowel sounds. No palpable organomegaly. MUSCULOSKELETAL: No joint swelling or deformity. EXTREMITIES: No cyanosis, clubbing, or pedal edema. NEUROLOGICAL: Patient has 4/5 strength in all 4 extremities and does have radicular pain symptoms in upper and lower extremities SKIN: No rashes. Assessment and plan -Dysphagia, increasing weakness predominantly in bilateral lower extremities: Secondary to hematoma postoperatively posterior cervical decompression surgery patient the was evaluated by spinal surgeon will undergo surgical decompression again. -Cervical myelopathy with severe cervical stenosis -Coronary artery disease CABG in the past it's reasonable to hold both antiplatelet therapy until surgery patient may not need to do antiplatelet therapy even after surgery -Past esophageal reflux disease -Hyperlipidemia -Hypertension DVT prophylaxis: Will hold all anticoagulation at this time due to cervical hematoma Past Medical History Past Medical History: Coronary Artery Disease (CAD), Cancer, GERD/Reflux, Hearing Disorder / Deafness, Hyperlipidemia, Hypertension, Myocardial Infarction (MT), Osteoarthritis (OA) Additional Past Medical History / Comment(s): hx. 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 LT SHOULDER SURG. [facility]. LT FOOT SURG. UVULA REMOVED, quad bypass 2016, right shoulder replacement December 2021, several colonoscopies, cervical fusion sx 03/06/2022 Past Anesthesia/Blood Transfusion Reactions: Previous Problems w/ Anesthesia Additional Past Anesthesia/Blood Transfusion Reaction / Comment(s): trouble urinating after recent shoulder replacement in December & had to be cathed, trouble waking up once in past Date of Last Stent Placement:: 2009 Past Psychological History: No Psychological Hx Reported Smoking Status: Former smoker Past Alcohol Use History: None Reported Past Drug Use History: None Reported - Past Family History Mother Family Medical History: Cancer Medications and Allergies Home Medications Medication Instructions Recorded Confirmed Type Aspirin 81 mg PO DAILY 06/19/14 03/13/22 History Esomeprazole Magnesium [NexIUM] 20 mg PO DAILY 06/19/14 03/13/22 History Lisinopril [Zestril] 40 mg PO DAILY 06/19/14 03/13/22 History Metoprolol Tartrate [Lopressor] 100 mg PO BID 06/19/14 03/13/22 History Multivitamin [Men's Multi-Vitamin] 1 tab PO DAILY 06/19/14 03/13/22 History Atorvastatin [Lipitor] 40 mg PO HS 03/02/22 03/13/22 History Cetirizine HCl [Zyrtec] 10 mg PO DAILY 03/02/22 03/13/22 History Clopidogrel [Plavix] 75 mg PO DAILY 03/02/22 03/13/22 History Ipratropium [place] 0.06%Nasal 1 spray EA NOSTRIL DAILY 03/02/22 03/13/22 History [Atrovent Nasal 0.06%] Montelukast [Singulair] 10 mg PO HS 03/02/22 03/13/22 History Psyllium [place] [Metamucil] 0.4 gm PO HS 03/02/22 03/13/22 History Acetaminophen [Tylenol] 500 mg PO Q4-6H PRN 03/06/22 03/13/22 History HYDROcodone/APAP 5-325MG [[place] 5] 1 tab PO Q4HR PRN 03/13/22 03/13/22 History Allergies Allergy/AdvReac Type Severity Reaction Status Date / Time aspirin AdvReac Abdominal Verified 03/13/22 17:30 Pain cyclobenzaprine AdvReac "Lost Verified 03/13/22 17:30 [From Flexeril] control of his body" sleeping pill-name unknown AdvReac dizzy, N/V Uncoded 03/13/22 17:30 Physical Exam Vitals: Vital Signs Temp Pulse Resp BP Pulse Ox 03/14/22 11:17 73 116 H 159/98 95 03/14/22 07:37 18 177/91 03/14/22 01:05 99 16 131/89 97 03/13/22 20:00 89 16 144/69 98 03/13/22 19:00 88 18 167/96 98 03/13/22 18:12 95 16 167/96 03/13/22 13:10 98.2 F 108 H 20 150/71 Results CBC & Chem 7: 03/13/22 19:15 03/13/22 19:15 Labs: Abnormal Lab Results - Last 24 Hours (Table) 03/13/22 03/13/22 03/13/22 Range/Units 16:39 19:15 19:15 Lymphocytes # 0.6 L (1.0-4.8) k/uL PT 12.1 H (9.0-12.0) sec Carbon Dioxide 20 L (22-30) mmol/L 03/13/22 Range/Units 19:15 Lymphocytes # (1.0-4.8) k/uL PT (9.0-12.0) sec Carbon Dioxide 20 L (22-30) mmol/L
[2022-03-14] MEDS ORDERED: LIDOCAINE 2% INJ 20 MG/ML (2 ML VIAL) ONE (19:55)
[2022-03-14] MEDS ORDERED: GLYCOPYRROLATE 0.2 MG/ML 2 ML VIAL ONE (19:55)
[2022-03-14] MEDS ORDERED: PROPOFOL 10 MG/ML 20 ML VIAL IV ONE (19:55)
[2022-03-14] MEDS ORDERED: fentaNYL (PF) 50 MCG/ML 2 ML AMP ONE (19:55)
[2022-03-14] MEDS ORDERED: MIDAZOLAM 2 MG/2 ML VIAL ONE (19:55)
[2022-03-14] MEDS ORDERED: NEOSTIGMINE 1 MG/ML 10 ML VIAL ONE (19:55)
[2022-03-14] MEDS ORDERED: ROCURONIUM 10 MG/ML (5 ML VIAL) IV ONE (19:55)
[2022-03-14] MEDS ORDERED: SUCCINYLCHOLINE CHLORIDE 100 MG/5 ML SYR IV ONE (19:55)
[2022-03-14] MEDS ORDERED: IV FLUID CONTINUATION 1,000 ML IV ONE (19:58)
[2022-03-14] MEDS ORDERED: SODIUM CHLORIDE 0.9% 100 ML with ceFAZolin 2,000 MG IV ONE ×2 (20:10)
[2022-03-14] MEDS ORDERED: LACTATED RINGERS 1,000 ML IV ONE (20:26)
[2022-03-14] MEDS ORDERED: BENZOCAINE/MENTHOL LOZENG 1 EACH LOZENGE MUCOUS MEM PRN (21:35)
[2022-03-14] MEDS ORDERED: HYDROmorphone 0.5 MG/0.5 ML SYRINGE IVP PRN (21:35)
[2022-03-14] MEDS ORDERED: HYDROcodone/APAP 5-325MG 1 EACH TAB PO PRN (21:35)
[2022-03-14] MEDS ORDERED: CYCLOBENZAPRINE 10 MG TAB PO PRN (21:35)
[2022-03-14] MEDS ORDERED: ONDANSETRON 4 MG/2 ML VIAL IVP PRN (21:35)
--- NOTE | 2022-03-14 21:54 | P.OP ---
Date of Procedure: 03/14/22 Preoperative Diagnosis: Cervical myelopathy, Firm hematoma right anterior cervical spine wound Recent history of anterior cervical decompression and fusion for cervical myelopathy and stenosis C3 4 C4 5 C5 6 postoperative day #8 Upper extremity weakness Dysphagia Central cord syndrome Postoperative Diagnosis: Same Anesthesia: GETA Pathology: other (Deep anterior cervical spine wound cultures sent to [facility]) Condition: stable Disposition: PACU Description of Procedure: BRIEF OPERATIVE NOTE Preoperative Diagnosis:Cervical myelopathy, Firm hematoma right anterior cervical spine wound Recent history of anterior cervical decompression and fusion for cervical myelopathy and stenosis C3 4 C4 5 C5 6 postoperative day #8 Upper extremity weakness Dysphagia Central cord syndrome Postoperative Diagnosis: same, without evidence of organized hematoma at the epidural space Procedure: Irrigation and debridement with excisional debridement of hematoma at anterior cervical spine wound Expiration of epidural space at C4 5 C5 6 without findings of significant hematoma Surgeon: Dr. Kramer Dental Claims Processor-none Anesthesia: General anesthesia Estimated blood loss: approximately 75 mL including the hematoma Complications: None apparent Components implanted: no new implants today Disposition: To recovery room in good stable condition. OPERATIVE INDICATIONS the patient has history of severe cervical stenosis with cervical myelopathy and myelomalacia. He had undergone anterior cervical decompression and fusion 8 days ago with our service for ACDF at C3 4 C4 5 C5 6 and had essentially uneventful recovery over the first night and was able to be discharged home the next day last Sunday. The patient feels that he did very well initially and he was even able to get up get around and do some typing which had been difficult for him prior. The patient says however that he started feeling worse on Sunday and was not steady on his feet. He had a fall and had some increase in his neck pain. He had a second fall and then started having some increased swelling at his neck and some changes in his function in his hands and fingers. He was having difficulty swallowing and dysphasia and was not eating much food as his neck is giving him some increased pain. He contacted our office yesterday and told us of these issues and we had him present to the emergency room for further evaluation. We were able to see him yesterday in the emergency room and he had evidence of a firm hematoma at his anterior cervical spine wound. There is no erythema there is no evidence of infection. He was having evidence of weakness at his bilateral upper extremities which had worsened since the time of his discharge. Apparently he had had remained somewhat stable over the past several days at home for him. He had worsening weakness at his upper extremities after sustaining his fall at home where he apparently hit his neck on dresser. We discussed these issues with him at length. We felt that he had significant hematoma which is causing him dysphagia and given his history which was significant for cardiac artery disease and coronary artery is bypass grafting on prolonged blood thinners we felt that he had some bleeding at the area which may have been exacerbated by his fall. Further the fall may have caused some neurologic change including central cord syndrome were used the possibility of epidural hematoma. He had further testing in the emergency room with x-rays and computed tomography scan. It shows the hardware in good alig nment and good position with good stability without any motion at the grafts or plate. The computed tomography scan had limited visualization but but per the radiologist there was some potential soft tissue fullness periodically at C4 5. With the patient's issues his neurologic change and his dysphagia with a or has hematoma anteriorly felt that evacuation of hematoma and exploration of the site we give him best chance of recovery. We discussed the nature of surgery and the risks of surgery including but limited to the risk of further bleeding risk of increased pain, risk of neurologic change. The risk of issues with anesthesia as well as the fact that surgery may not alleviate his symptoms and it would be a possibility further surgery. The patient was having some benefit with the IV steroid medication in terms of his pain at his neck as well as some of the function in his hands. We felt that he could have further benefit with surgical intervention and the patient elected to proceed with surgery. He signed informed consent. OPERATIVE SUMMARY After discussing all the risks, patient alternatives and benefits at length, the patient elected to proceed with surgical intervention, signed informed consent, and presented for their procedure. The patient was seen and examined in the preoperative holding area and the surgical site was marked. The patient was given antibiotics and brought to the operating room. The patient was positioned on the operating room table in a supine position being careful to pad any bony prominences and pressure points. The patient was sedated and intubated by anesthesia in standard fashion. Once the airway and C- spine were stabilized the patient's arms were padded and tucked at her side, with her shoulders gently taped. The head was placed in a donut pad with the neck in good neutral alignment and position. We were careful to maintain the patient's cervical spine and good neutral alignment and position throughout. The patient was prepped and draped in a normal standard fashion. An appropriate timeout and keystone protocol performed. We were able to proceed with the surgery. An incision was made transversely approximately 2-1/2 cm over the prior incision site at the right at C4 5. Upon making the incision there was hematoma underneath the skin overlying the platysma. This was only a small amount and I was able to be evacuated easily. Upon splitting the platysma I removed the prior sutures and there was obvious hematoma at the area. I was able to mobilize this it was somewhat jellylike and somewhat firm was able to evacuate this and remove it with copious irrigation and suctioning a dry. There is some denuded tissue which was also removed there is some early granulation which was removed as well I was able to dissect further down along the carotid approach. There does not seem to be significant organized hematoma deep to the trachea and esophagus. I was able to expose anterior aspect of the cervical plate. There is no evidence of any purulence or any pus. I do not see any significant hematoma along the anterior aspect of vertebral bodies or along the plate. There is some early granulation along the plate itself but there did not seem to be extension of the hematoma deep to the trachea and esophagus. There does not seem to be evidence of epidural hematoma. I was able to dissect down and e valuate the interbody spaces at C34 C4 5 and C5 6 at the left aspect of the interbody allograft bone graft. I was able to suction and palpate with a ball- tipped feeler and a blunt nerve hook and visualized areas themselves and did not see any organizer firm hematoma at those spaces around the epidural space anteriorly or behind grafts. I was able to irrigate copiously with greater than 3 L of sterile saline. I did not note any obvious epidural hematoma on exploring the interbody spaces around the grafts. I did not feel we had to take down the full construct or remove the interbody grafts and risk further breakdown of construct or healing. The patient had been making progress with the steroid treatment and without strong evidence visually of organized hematoma deep to the construct I felt that the copious irrigation and suctioning dry was appropriate and adequate. We had good resolution of the hematoma. There is no evidence of dural tear or leak. I felt we could proceed with closure. I placed a deep drain at the anterior aspect of the plate extending through the platysma and out the skin. The platysma was closed loosely with 3-0 PDS and the skin was closed with 3-0 PDS an d 40 subcu radicular PDS. The drain was sewn in. The wound was sealed with excellent and blue. A drain sponge was placed as well as Opteform dressing over the site. The drapes were broken down patient was asked woken up by anesthesia extubated transferred back to a stretcher brought to recovery in good stable condition he'll be admitted for close observation, continued IV steroid medication, drain management and mobilization with therapy. We will continue to follow them closely and follow his progress with further recommendations and treatment as necessary. The patient will be admitted to the hospital for appropriate postoperative care, medical management and monitoring. We will continue to follow them closely about the postoperative course.
[2022-03-14] MEDS: ATORVASTATIN 40 MG TAB PO SCH (23:28)
[2022-03-14] MEDS: MONTELUKAST 10 MG TAB PO SCH (23:28)
[2022-03-14] MEDS: PSYLLIUM HUSK 100% 6 GM PACKET PO SCH ×2 (23:28→23:39)
[2022-03-15] MEDS: methylPREDNISolone SOD SUCCI 125 MG/2 ML VIAL IV SCH ×3 (02:11→17:01)
[2022-03-15] MEDS: SODIUM CHLORIDE 0.9% 1,000 ML IV SCH ×3 (03:03→12:03)
[2022-03-15] MEDS: LORATADINE 10 MG TAB PO SCH (08:24)
[2022-03-15] MEDS: SENNOSIDES-DOCUSATE SODIUM 1 EACH TAB PO SCH (08:24)
[2022-03-15] MEDS: PANTOPRAZOLE 40 MG TABLET PO SCH (08:25)
[2022-03-15] MEDS: MULTIVITAMINS, THERA 1 EACH TAB PO SCH (08:25)
[2022-03-15] MEDS: METOPROLOL TARTRATE 50 MG TAB PO SCH ×2 (08:26→21:27)
[2022-03-15] MEDS: lisinopriL 20 MG TAB PO SCH (08:26)
[2022-03-15] MEDS ORDERED: SENNOSIDES-DOCUSATE SODIUM 1 EACH TAB PO SCH (09:00)
--- NOTE | 2022-03-15 09:37 | P.PN ---
Progress Note - Text Progress Note Date: 03/15/22 Orthopedic spine: History of present illness: Patient is a very pleasant 76-year-old male who is seen and examined at bedside following evaluation of the cervical spine. He is known have previously undergone a C3-4, C4-5, and C5-6 anterior cervical decompression and fusion on 03/06/2022. He is known to have cervical myelopathy, cervical myelomalacia, upper extremity weakness, lower extremity weakness, and significant unsteady gait. He did well postoperatively and was discharged from the hospital. Following discharge home, patient had initially been doing well and then started to decline. He was experiencing dysphagia and sustained multiple falls. He presented back to the hospital for further treatment evaluation. He was found to have a hematoma at his anterior cervical spine. He underwent irrigation and debridement with excisional debridement of hematoma at the anterior cervical spine yesterday, 03/14/2022. His cervical hardware remains intact. Since that time he states he has felt some improvement with the range of motion of his right hand. He is also swallowing better today. He was able to eat some light breakfast and drink some water and Jay juice. His surgical dressing with Hemovac drain remains intact that is anterior cervical spine. He has less swelling of the cervical spine. He states his pain is currently well controlled. He has no current complaints at the bedside. He does state following his initial cervical fusion he does feel he has had improvement in his hands. He is able to perform active range of motion of the hands with teacher assistant, thumb extension, and finger extension but does continue to have significant weakness. He does continue to have a significant unsteady gait. He is not allowed to ambulate independently. He continues to be seen and examined by medicine. Patient's other medical diagnoses include hypertension, hyperlipidemia, coronary artery disease, history of cardiac stent, history of shortness of breath, and history of myocardial infarction. He is not experiencing any fever or chills. Physical exam: Patient is awake, alert, and oriented 3 Vital signs stable Good chest excursion with deep inspiration and expiration Adequate range of motion of the cervical spine with adequate flexion, extension, and bilateral rotation Mild generalized swelling around the surgical site with surgical dressing intact Hemovac drain intact surgical site Surgical site at the anterior cervical spine is currently clean, dry, and intact Positive Hoffmans sign bilateral upper extremities Patient does have significant weakness with the hands bilaterally Patient is able to make a fist bilaterally but has significant weakness with teacher assistant Interosseous strength 0/5 bilaterally Studio Set Up Worker strength 2/5 bilaterally Biceps strength and triceps strength 5/5 Some reduced range of motion of the right shoulder following previous surgical intervention Assessment: Status post irrigation and debridement with excisional debridement of hematoma at the anterior cervical spine performed on 03/14/2022 Status post C3-4, C4-5, and C5-6 anterior cervical decompression and fusion performed on 03/06/2022 C3-4, C4-5, and C5-6 spinal stenosis Cervical degenerative disc disease Cervicalgia Cervical myelopathy Cervical myelomalacia Significant unsteady gait Central cord syndrome Upper extremity radiculopathy Upper extremity weakness Hypertension Hyperlipidemia Coronary artery disease History of cardiac stent History of shortness of breath History of myocardial infarction Plan: We will continue to follow patient closely. 1. Keep surgical dressing and surgical drain over the anterior cervical spine intact; we'll plan to change his dressing and remove the drain tomorrow 2. Keep surgical dressing clean and dry 3. Patient is encouraged to continue working with physical therapy to improve his mobility and ambulation 4. Patient may ambulate with the assistance of a walker. Patient should not ambulate alone and must have assistance The patient is seen and examined at bedside he was getting up with 2 person assist today and feels that his hands are significant improved and his neck pain and swelling is significantly improved as well. He was able to swallow some pills and some food this morning. He'll continue to work on his mobilization. I think that he is responding to both the surgery as well as the steroid medicat ion and will likely need to be home with oral steroids after discharge. We'll keep the drain in until tomorrow and potentially discharge him home tomorrow with oral steroid and close follow-up. 5. If the patient is able to continue making progress, we may plan for discharge home as early as tomorrow, 03/16/2022
[2022-03-15] MEDS: IPRATROPIUM BROMIDE 0.06% NASAL SPRAY (15 ML) EA NOSTRIL SCH (10:14)
--- NOTE | 2022-03-15 14:08 | P.PN ---
Subjective Progress Note Date: 03/15/22 Patient 76-year-old male came in the with complaints of dysphagia MRI to anterior neck hematoma and mass and increasing weakness and bilateral lower extremity is in upper extremities. Patient had a recent cervical decompression discectomy and fusion presently postoperative day 8 patient started having increasing neck swelling probably be a hematoma. Patient does have tingling numbness which has been there even before surgery. Patient was evaluated by search engine optimization specialist and patient is being taken to surgery today. Patient has coronary artery bypass grafting but didn't have any cardiac catheterization recently but patient is on dual antiplatelet therapy. 03/15/2022 Patient is seen in follow-up today and continues to have upper extremity weakness and generalized weakness and reports he is requiring assistance although was refusing any form of rehab and reports he will be going home on discharge. Patient also reports he has not been eating much as he is having difficulty in swallowing and will continue with dysphagia diet and advance as tolerated. Vital signs are stable and patient denies any chest pain or shortness of breath. Oxygen saturation is 95% on room air. Patient continues with surgical dressings of the neck along with Hemovac drain with possible removal of the drain in 24 hours. Orthopedics is following closely. Review of systems: Constitutional: No reports of fatigue, fever, or chills Cardiovascular: No reports of chest pain or palpitations Respiratory: No reports of shortness of breath or cough GI: No reports of nausea, vomiting, or diarrhea : No reports of dysuria or retention Neurovascular: No reports of weakness or numbness All medications have been reviewed Active Medications Acetaminophen (Acetaminophen Tab 500 Mg Tab) 500 mg PO Q4H PRN PRN Reason: Pain Hydrocodone Bitart/Acetaminophen (Hydrocodone/Apap 5-325mg 1 Each Tab) 1 each PO Q4HR PRN PRN Reason: Pain Hydrocodone Bitart/Acetaminophen (Hydrocodone/Apap 5-325mg 1 Each Tab) 1 each PO Q4HR PRN PRN Reason: Pain Atorvastatin Calcium (Atorvastatin 40 Mg Tab) 40 mg PO HS [facility] Last Admin: 03/14/22 23:28 Dose: 40 mg Benzocaine/Menthol (Benzocaine/Menthol Lozeng 1 Each Lozenge) 1 each MUCOUS MEM Q4HR PRN PRN Reason: Sore Throat Bisacodyl (Bisacodyl 10 Mg Supp) 10 mg RECTAL DAILY PRN PRN Reason: Constipation Cyclobenzaprine HCl (Cyclobenzaprine 10 Mg Tab) 10 mg PO TID PRN PRN Reason: Muscle Spasm Hydromorphone HCl (Hydromorphone 0.5 Mg/0.5 Ml Syringe) 0.5 mg IVP Q3HR PRN PRN Reason: Pain Scale 4 - 6 Hydromorphone HCl (Hydromorphone 1 Mg/Ml 1 Ml Syringe) 1 mg IVP Q3HR PRN PRN Reason: Pain Scale 7 - 10 Last Admin: 03/13/22 20:33 Dose: 1 mg Hydromorphone HCl (Hydromorphone 0.5 Mg/0.5 Ml Syringe) 0.5 mg IVP Q4HR PRN PRN Reason: Pain Sodium Chloride (Saline 0.9%) 1,000 mls @ 125 mls/hr IV .Q8H [facility] Last Admin: 03/15/22 10:14 Dose: Not Given Sodium Chloride (Saline 0.9%) 1,000 mls @ 75 mls/hr IV .[id number] [facility] Last Admin: 03/15/22 12:03 Dose: 75 mls/hr Ipratropium Buckeye (Ipratropium Buckeye 0.06% Nasal [place] (15 Ml)) 1 spray EA NOSTRIL DAILY [facility] Last Admin: 03/15/22 10:14 Dose: Not Given Lisinopril (Lisinopril 20 Mg Tab) 40 mg PO DAILY [facility] Last Admin: 03/15/22 08:26 Dose: 40 mg Loratadine (Loratadine 10 Mg Tab) 10 mg PO DAILY [facility] Last Admin: 03/15/22 08:24 Dose: Not Given Methylprednisolone Sodium Succinate (Methylprednisolone Sod Succi 125 Mg/2 Ml Vial) 60 mg IV Q8H [facility] Last Admin: 03/15/22 10:56 Dose: 60 mg Metoprolol Tartrate (Metoprolol Tartrate 50 Mg Tab) 100 mg PO BID [facility] Last Admin: 03/15/22 08:26 Dose: 100 mg Montelukast Sodium (Montelukast 10 Mg Tab) 10 mg PO HS [facility] Last Admin: 03/14/22 23:28 Dose: 10 mg Multivitamins (Multivitamins, Thera 1 Each Tab) 1 each PO DAILY [facility] Last Admin: 03/15/22 08:25 Dose: Not Given Naloxone HCl (Naloxone 0.4 Mg/Ml 1 Ml Vial) 0.2 mg IV Q2M PRN PRN Reason: Opioid Reversal Ondansetron HCl (Ondansetron 4 Mg/2 Ml Vial) 4 mg IVP Q8HR PRN PRN Reason: Nausea And Vomiting Oxycodone/Acetaminophen (Oxycodone-Apap 5-325mg 1 Each Tab) 1 each PO Q4HR PRN PRN Reason: Severe Pain Pantoprazole Sodium (Pantoprazole 40 Mg Tablet) 40 mg PO [id number]-[id number] [facility] Last Admin: 03/15/22 08:25 Dose: 40 mg Psyllium Hydrophilic Mucilloid (Psyllium Husk 100% 6 Gm Packet) 6 gm PO HS [facility] Last Admin: 03/14/22 23:39 Dose: Not Given Senna/Docusate Sodium (Sennosides-Docusate Sodium 1 Each Tab) 1 each PO DAILY [facility] Last Admin: 03/15/22 08:24 Dose: Not Given PHYSICAL EXAMINATION: GENERAL: The patient is alert and oriented x3, not in any acute distress. Well developed, well nourished. HEENT: Pupils are round and equally reacting to light. EOMI. No scleral icterus. No conjunctival pallor. Normocephalic, atraumatic. No pharyngeal erythema. No thyromegaly. Anterior neck swelling with Hemovac drain and surgical dressing noted that is dry and intact CARDIOVASCULAR: S1 and S2 present. No murmurs, rubs, or gallops. PULMONARY: Chest is clear to auscultation, no wheezing or crackles. ABDOMEN: Soft, nontender, nondistended, normoactive bowel sounds. No palpable organomegaly. MUSCULOSKELETAL: No joint swelling or deformity. EXTREMITIES: No cyanosis, clubbing, or pedal edema. NEUROLOGICAL: Patient has 4/5 strength in all 4 extremities and does have radicular pain symptoms in upper and lower extremities SKIN: No rashes. Assessment: -Dysphagia, increasing weakness predominantly in bilateral lower extremities: Secondary to hematoma postoperatively posterior cervical decompression surgery patient the was evaluated by spinal surgeon will undergo surgical decompression again. -Cervical myelopathy with severe cervical stenosis -Coronary artery disease CABG in the past it's reasonable to hold both antiplatelet therapy until surgery patient may not need to do antiplatelet therapy even after surgery -Gastroesophageal reflux disease -Hyperlipidemia -Hypertension -DVT prophylaxis: Will hold all anticoagulation at this time due to cervical hematoma -Full code Plan: Recommend continue with Hemovac drain and surgical dressing to the neck with orthopedics following. Plan is for possible drain removal in the a.m. Physical therapy following and will continue to evaluate the patient. Patient reports his plan is to return home with family once discharged. Patient continues to report right upper extremity weakness and difficulty with doing things with his hands due to the weakness and reports some minimal improvement. Vital signs are stable and will follow-up with physical therapy and patient reports he is likely being discharged tomorrow. The impression and plan of care has been dictated by Niyah Bueno, Nurse Practitioner as directed. Dr. Vicente MD I have performed a history and examination and MDM of this patient, discussed the same with the dictator, and agree with the dictator's assessment and plan as written ,documented as a scribe. Based on total visit time, I have performed more than 50% of the visit. Objective - Vital Signs Vital signs: Vital Signs Temp 97.8 F 03/15/22 07:35 Pulse 81 03/15/22 07:35 Resp 18 03/15/22 07:35 BP 147/71 03/15/22 07:35 Pulse Ox 95 03/15/22 07:35 FiO2 Intake & Output 03/14/22 03/15/22 03/15/22 18:59 06:59 18:59 Intake Total 1575 Output Total 475 Balance 1100 Weight 90.718 kg Intake: IV 800 Intake, IV Titration 575 Amount Sodium Chloride 0.9% 1, 525 000 ml @ 75 mls/hr IV . [id number] [facility] Rx#:[id number] ceFAZolin 2 gm In Sodium 50 Chloride 0.9% 50 ml @ 100 mls/hr IVPB Q8HR [facility] Rx# :[id number] Oral 200 Output: Urine 400 Estimated Blood Loss 75 Other: # Voids 2 # Bowel Movements 0 - Labs CBC & Chem 7: 03/13/22 19:15 03/13/22 19:15 Labs: Microbiology - Last 24 Hours (Table) 03/14/22 20:36 Gram Stain - Preliminary Back Wound Culture - Preliminary 03/14/22 20:36 Anaerobic Culture - Preliminary Back
[2022-03-15] MEDS: MONTELUKAST 10 MG TAB PO SCH (21:27)
[2022-03-15] MEDS: ATORVASTATIN 40 MG TAB PO SCH (21:27)
[2022-03-15] MEDS: PSYLLIUM HUSK 100% 6 GM PACKET PO SCH (21:27)
[2022-03-16] MEDS: SODIUM CHLORIDE 0.9% 1,000 ML IV SCH ×2 (01:30→14:07)
[2022-03-16] MEDS: methylPREDNISolone SOD SUCCI 125 MG/2 ML VIAL IV SCH (02:45)
[2022-03-16] MEDS ORDERED: MAGNESIUM HYDROXIDE 2,400 MG/10 ML CUP PO PRN (07:47)
--- NOTE | 2022-03-16 08:00 | P.PN ---
Progress Note - Text Progress Note Date: 03/16/22 The patient is seen and examined today at bedside. He feels he is swallowing better and his hands are moving better. Still feels very unstable on his feet and is unable to get up on his own. He is not able to transfer to [facility] or to a chair on his own yet. He has been able to eat solid foods but has difficulty feeding himself. He says he has seizes fingers to eat he still having great difficulty using any tonsils. On exam his neck incision sites clean. There is no swelling. There is no erythema. There is no drainage. The Hemovac is remained stable. I removed the Hemovac today and remove the stitch. The incision looks great. His neck is soft and supple Has upper extremities his motion is significantly improved he is able to fully extend his fingers and is able to make a loose fist. He still has difficulty with dexterity his hands and fingers. His neck is nontender. His abdomen soft. His lower extremities he has 5 out of 5 strength dorsal flexion plantarflexion. We had him get out of bed today he is able to sit up with minimal assistance in bed, when he stands to transfer he requires a walker and significant standby assistance as he is unstable on his feet. Assessment and plan Cervical myelopathy with myelomalacia status post anterior cervical decompressio n with discectomy and fusion postoperative day #10 Status post Evacuation of hematoma postoperative day #2 Likely worsen central cord syndrome due to mechanical fall which seems to be responding to surgery and steroid medication Gait abnormality and inability to ambulate on his own Dysphagia which seems to be resolving Upper extremity weakness The patient has been having significant difficulties with his overall coordination his upper extremities and lower extremities with his mobilization. He seems to be making improvement here during his hospitalization. His function in his upper extremities has improved as has his balance and coordination. He still has quite a long way to go. He has significant cervical myelopathy and his surgical site appears to be stable. He is now postoperative day #10 from his fusion surgery. Unfortunately he had sustained a couple falls at home and developed hematoma which had evacuated and is now postoperative day #2. There does not seem to be recurrence of the hematoma at this point in the drain is been discontinued. His neck appears soft and supple and his swallowing is improved. The patient still has significant functional deficits at his upper and lower extremities due to his myelopathy and likely exacerbated central cord syndrome. I do not think that he would be able to function well on his own with only to help with his . He has significant needs for assistance and I think that he requires inpatient [facility] for continued physical therapy on a daily basis as well as is some assistance with his daily living activities. We discussed this with him again. He is hopeful to go home but I do not think that he is able to be at home yet at this point until he can be stronger. From a spine standpoint we can convert him from IV steroid to oral steroids that he can continue and hopefully will help further alleviate his neurologic issues as they improve. We can continue to control his pain. And he can be managed with re gular therapy and strengthening and mobilization with [facility] or rehab placement. I could potentially happen today. Could be cleared with medicine and remained stable with appropriate arrangements.
[2022-03-16] MEDS: PANTOPRAZOLE 40 MG TABLET PO SCH (09:19)
[2022-03-16] MEDS: FAMOTIDINE 20 MG TAB PO SCH ×2 (09:20→21:09)
[2022-03-16] MEDS: METOPROLOL TARTRATE 50 MG TAB PO SCH ×2 (09:20→21:09)
[2022-03-16] MEDS: LORATADINE 10 MG TAB PO SCH (09:20)
[2022-03-16] MEDS: predniSONE 20 MG TAB PO SCH (09:20)
[2022-03-16] MEDS: lisinopriL 20 MG TAB PO SCH (09:20)
[2022-03-16] MEDS: MULTIVITAMINS, THERA 1 EACH TAB PO SCH (09:20)
[2022-03-16] MEDS: IPRATROPIUM BROMIDE 0.06% NASAL SPRAY (15 ML) EA NOSTRIL SCH (09:21)
[2022-03-16] MEDS: SENNOSIDES-DOCUSATE SODIUM 1 EACH TAB PO SCH (09:31)
[2022-03-16] MEDS: ATORVASTATIN 40 MG TAB PO SCH (21:09)
[2022-03-16] MEDS: MONTELUKAST 10 MG TAB PO SCH (21:09)
[2022-03-16] MEDS: PSYLLIUM HUSK 100% 6 GM PACKET PO SCH (21:09)
[2022-03-17] MEDS: SODIUM CHLORIDE 0.9% 1,000 ML IV SCH (04:57)
[2022-03-17] MEDS: METOPROLOL TARTRATE 50 MG TAB PO SCH (07:27)
[2022-03-17] MEDS: predniSONE 20 MG TAB PO SCH (07:27)
[2022-03-17] MEDS: PANTOPRAZOLE 40 MG TABLET PO SCH (07:27)
[2022-03-17] MEDS: lisinopriL 20 MG TAB PO SCH (07:28)
[2022-03-17] MEDS: MULTIVITAMINS, THERA 1 EACH TAB PO SCH (07:28)
[2022-03-17] MEDS: FAMOTIDINE 20 MG TAB PO SCH (07:29)
[2022-03-17] MEDS: SENNOSIDES-DOCUSATE SODIUM 1 EACH TAB PO SCH (07:29)
[2022-03-17] MEDS: LORATADINE 10 MG TAB PO SCH (07:29)
[2022-03-17 07:38] VITALS: RESP 18
[2022-03-17] MEDS: IPRATROPIUM BROMIDE 0.06% NASAL SPRAY (15 ML) EA NOSTRIL SCH (07:38)
--- NOTE | 2022-03-17 08:32 | P.PN ---
Progress Note - Text Progress Note Date: 03/17/22 Orthopedic spine: History of present illness: Patient is a very pleasant 76-year-old male who is seen and examined at bedside following evaluation of the cervical spine. He is known have previously undergone a C3-4, C4-5, and C5-6 anterior cervical decompression and fusion on 03/06/2022. He is known to have cervical myelopathy, cervical myelomalacia, upper extremity weakness, lower extremity weakness, and significant unsteady gait. He did well postoperatively and was discharged from the hospital. Following discharge home, patient had initially been doing well and then started to decline. He was experiencing dysphagia and sustained multiple falls. He presented back to the hospital for further treatment evaluation. He was found to have a hematoma at his anterior cervical spine. He underwent irrigation and debridement with excisional debridement of hematoma at the anterior cervical spine yesterday, 03/14/2022. His cervical hardware remains intact. Over the past couple days he's continued to have improvement following irrigati on and debridement. He continues to swallow better and is eating without significant difficulty. The Hemovac drain surgical site has been discontinued. His incision site is clean, dry, and intact. His cervical spine is soft at the surgical site. He has been able to continue to improve with range of motion of his hands. He has been able to transfer to a bedside chair independently. He does feel he has continued to increase his mobility and ambulation over the past couple days. He continues to use a walker to aid in ambulation. He states his pain is currently well controlled. Patient had a large bowel movement last evening. It was his first bowel movement in 7 days. He is feeling significantly better and feels he is ready for discharge today. He is planning for discharge to a rehabilitation facility. He continues to be seen and examined by medicine. Patient's other medical diagnoses include hypertension, hyperlipidemia, coronary artery disease, history of cardiac stent, history of shortness of breath, and history of myocardial infarction. He is not experiencing any fever or chills. Physical exam: Patient is awake, alert, and oriented 3 Vital signs stable Good chest excursion with deep inspiration and expiration Adequate range of motion of the cervical spine with adequate flexion, extension, and bilateral rotation Mild generalized swelling around the surgical site with surgical dressing intact Skin of the anterior cervical spine around the surgical incision site is soft Surgical site at the anterior cervical spine is currently clean, dry, and intact No pain with palpation around the anterior cervical surgical site Positive Hoffmans sign bilateral upper extremities Patient does have significant weakness with the hands bilaterally Improvement with tool dispatcher strength over the past 2 days; tool dispatcher strength 3/5 bilaterally Patient has better range of motion fingers to thumb of all fingers of the hands bilaterally Interosseous strength 0/5 bilaterally Biceps strength and triceps strength 5/5 Some reduced range of motion of the right shoulder following previous surgical intervention Assessment: Status post irrigation and debridement with excisional debridement of hematoma at the anterior cervical spine performed on 03/14/2022 Status post C3-4, C4-5, and C5-6 anterior cervical decompression and fusion performed on 03/06/2022 C3-4, C4-5, and C5-6 spinal stenosis Cervical degenerative disc disease Cervicalgia Cervical myelopathy Cervical myelomalacia Significant unsteady gait Central cord syndrome Upper extremity radiculopathy Upper extremity weakness Hypertension Hyperlipidemia Coronary artery disease History of cardiac stent History of shortness of breath History of myocardial infarction Plan: 1. Hemovac drain has been discontinued. Nonstick Telfa and Tegaderm remain intact over the anterior cervical spine. Patient may shower with this dressing intact. Patient may remove dressing and shower without a dressing intact and 72 hours of surgical site remains clean and dry. 2. Patient is encouraged to continue working with physical therapy to improve his mobility and ambulation 4. Patient may ambulate with the assistance of a walker. Patient should not ambulate alone and must have assistance. 5. Patient has had some benefit with IV steroids during the admittance to the hospital. He was transitioned to oral steroid medication. Patient is given a prescription for prednisone 60 mg taper and Pepcid. He should take these ministrations as prescribed until completion of the prescription. 6. A prescription has been written for [place] 5 mg/325 mg 1-2 tabs every 6 hours as needed for pain, dispense #56. Prescription is printed, signed, and placed in the patient's chart. 7. Patient has also had some difficulty with constipation over the past week postoperatively. He had a large bowel movement yesterday. He is given a prescription for Senokot 1 tab twice a day, dispensed #60, as needed for constipation. 8. Patient was able to have a large bowel movement yesterday and has continued to improve. From an orthopedic spine standpoint, patient is clear for discharge today to a rehabilitation facility. We will plan to have him follow-up in approximately 1 week for further evaluation. Patient may follow-up with Rosales Torres PA-C or Dr. Linwood Kramer at [facility] in 1-2 weeks following discharge.
--- NOTE | 2022-03-17 12:38 | P.DS ---
Providers Date of admission: 03/13/22 16:08 Expected date of discharge: 03/17/22 Attending physician: Zuleika Zhang Consults: 03/14/22 17:42 Consult Physician Routine Consulting Provider: Ben Kramer Consult Reason/Comments: pt known to you Do you want consulting provider notified?: Already Contacted Primary care physician: Olga Bird Hospital Course: Final diagnosis -Dysphagia, increasing weakness predominantly in bilateral lower extremities: Secondary to hematoma postoperatively posterior cervical decompression -Cervical myelopathy with severe cervical stenosis -Coronary artery disease CABG in the past -Gastroesophageal reflux disease -Hyperlipidemia -Hypertension -DVT prophylaxis -Full code Discharge disposition Patient is being discharged in a stable condition with guarded prognosis to [facility] for continued PT/OT therapy. Patient will follow-up with Dr. Bird in the outpatient setting upon discharge. Patient will also follow-up with ortho Dr. Kramer in the outpatient setting in 1 week. Patient to continue on a prednisone taper per Orth [facility] and continue with daily baby aspirin. Total time taken is greater than 35 minutes. Hospital course This is a 76-year-old male admitted with dysphagia and anterior neck hematoma status post cervical decompression discectomy and fusion with Dr. Kramer. Patient was on aspirin and Plavix and Plavix will be discontinued and continue with aspirin and patient is status post incision and drainage of the hematoma. Drainage tube has been removed and patient reports doing improvement in swelling and is maintained on steroids and now able to swallow and eat with no difficulties. Recommend continuing with dysphagia 3 Diet for now and slowly advance as tolerated once the swelling continues to improve. Patient will follow-up with orthopedics in the outpatient setting in 1 week. Patient continues with weakness and upper extremity weakness and having difficulties with ADLs and will be going to rehab for continued PT/OT therapy. Patient also reports to having a large bowel movement and is passing gas and tolerating diet. Currently no reports of chest pain, shortness of breath, or palpitations. Patient is afebrile. No reports of nausea or vomiting and patient is tolerating diet. Patient will be going to [facility] today. Physical exam: Gen: This is a 76-year-old male awake, alert and oriented 3, well-developed, well-nourished. HEENT: Head is atraumatic, normocephalic. Pupils equal, round. Sclerae is anicteric. NECK: Supple. No JVD. No lymphadenopathy. No thyromegaly. LUNGS: Clear to auscultation. No wheezes or rhonchi. No intercostal retractions. HEART: Regular rate and rhythm. No murmur. ABDOMEN: Soft. Bowel sounds are present. No masses. No tenderness. EXTREMITIES: No pedal edema. No calf tenderness. NEUROLOGICAL: Patient is awake, alert and oriented x3. Diffuse weakness Please refer to medication reconciliation sheet for a list of medications. The impression and plan of care has been dictated by Niyah Bueno, Nurse Practitioner as directed. Dr. Vicente MD I have performed a history and examination and MDM of this patient, discussed the same with the dictator, and agree with the dictator's assessment and plan as written ,documented as a scribe. Based on total visit time, I have performed more than 50% of the visit. Patient Condition at Discharge: Stable Plan - Discharge Summary Discharge Rx Participant: Yes New Discharge Prescriptions: New predniSONE [Deltasone] 60 mg PO DAILY #21 tab Famotidine [Pepcid] 20 mg PO BID #14 tablet Sennosides-Docusate Sodium [Senokot-S] 1 tab PO BID PRN #60 tablet PRN Reason: Constipation bisacodyL [Dulcolax] 10 mg RECTAL DAILY PRN suppositor PRN Reason: Constipation Magnesium Hydroxide [Milk of Magnesia Concentrate] 2,400 mg PO DAILY PRN ml PRN Reason: Constipation HYDROcodone/APAP 5-325MG [[place] 5] 1 - 2 each PO Q6HR PRN #56 tab PRN Reason: Pain Benzocaine/Menthol Lozeng [Cepacol lozenge] 1 each MUCOUS MEM Q4HR PRN lozenge PRN Reason: Sore Throat Cyclobenzaprine [Flexeril] 10 mg PO TID PRN tab PRN Reason: Muscle Spasm Continue Esomeprazole Magnesium [NexIUM] 20 mg PO DAILY Lisinopril [Zestril] 40 mg PO DAILY Aspirin 81 mg PO DAILY Metoprolol Tartrate [Lopressor] 100 mg PO BID Multivitamin [Men's Multi-Vitamin] 1 tab PO DAILY Montelukast [Singulair] 10 mg PO HS Psyllium Husk [Metamucil] 0.4 gm PO HS HYDROcodone/APAP 5-325MG [[place] 5-325] 1 tab PO Q4HR PRN PRN Reason: Pain Ipratropium [place] 0.06%Nasal [Atrovent Nasal 0.06%] 1 spray EA NOSTRIL DAILY Cetirizine HCl [Zyrtec] 10 mg PO DAILY Atorvastatin [Lipitor] 40 mg PO HS Acetaminophen [Tylenol] 500 mg PO Q4-6H PRN PRN Reason: Pain Discontinued Clopidogrel [Plavix] 75 mg PO DAILY Discharge Medication List Aspirin 81 mg PO DAILY 06/19/14 [History] Esomeprazole Magnesium [NexIUM] 20 mg PO DAILY 06/19/14 [History] Lisinopril [Zestril] 40 mg PO DAILY 06/19/14 [History] Metoprolol Tartrate [Lopressor] 100 mg PO BID 06/19/14 [History] Multivitamin [Men's Multi-Vitamin] 1 tab PO DAILY 06/19/14 [History] Atorvastatin [Lipitor] 40 mg PO HS 03/02/22 [History] Cetirizine HCl [Zyrtec] 10 mg PO DAILY 03/02/22 [History] Ipratropium [place] 0.06%Nasal [Atrovent Nasal 0.06%] 1 spray EA NOSTRIL DAILY 03/02/22 [History] Montelukast [Singulair] 10 mg PO HS 03/02/22 [History] Psyllium Husk [Metamucil] 0.4 gm PO HS 03/02/22 [History] Acetaminophen [Tylenol] 500 mg PO Q4-6H PRN 03/06/22 [History] HYDROcodone/APAP 5-325MG [[place] 5-325] 1 tab PO Q4HR PRN 03/13/22 [History] Famotidine [Pepcid] 20 mg PO BID #14 tablet 03/16/22 [Rx] predniSONE [Deltasone] 60 mg PO DAILY #21 tab 03/16/22 [Rx] Benzocaine/Menthol Lozeng [Cepacol lozenge] 1 each MUCOUS MEM Q4HR PRN lozenge 03/17/22 [Rx] Cyclobenzaprine [Flexeril] 10 mg PO TID PRN tab 03/17/22 [Rx] HYDROcodone/APAP 5-325MG [[place] 5] 1 - 2 each PO Q6HR PRN #56 tab 03/17/22 [Rx] Magnesium Hydroxide [Milk of Magnesia Concentrate] 2,400 mg PO DAILY PRN ml 03/17/22 [Rx] Sennosides-Docusate Sodium [Senokot-S] 1 tab PO BID PRN #60 tablet 03/17/22 [Rx] bisacodyL [Dulcolax] 10 mg RECTAL DAILY PRN suppositor 03/17/22 [Rx] Follow up Appointment(s)/Referral(s): Ben Kramer DO [Family Provider] - 1 Week (Patient may follow-up with Rosales Torres PA-C or Dr. Linwood Kramer at [facility] in 1 week following discharge. ) Olga Bird DO [Primary Care Provider] - 1-2 days Activity/Diet/Wound Care/Special Instructions: Keep site clean. May shower with waterproof Tegaderm intact. Do not soak in a tub. After 72 hours postoperatively, patient May remove dressing and then may shower with area uncovered. Leave glue intact and allow it to fray off on its own. May ambulate as tolerated, with assistance. Avoid heavy or rigorous activity. No repetitive bending twisting or lifting. No lifting greater than 10 pounds. No overhead work. Take medications as prescribed. Continue to utilize a walker to aid in ambulation. Daily therapy for assistance in transfers and gait and mobilization and activities of daily living Patient is going to [facility] Activity as tolerated with restrictions per orthopedics Continue prednisone taper per [facility] Continue with dysphasia 3 chopped diet and advance as tolerated Recommend follow-up with primary care provider on discharge Discharge Disposition: TRANSFER TO SNF/ECF
[2022-03-17 14:41] VITALS: BP 167/66; PULSE 71; TEMP 98.3
--- NOTE | 2022-03-21 08:57 | CDI ---
Documentation Clarification Form Date: 03/21/2022 08:46:00 AM From: Cristy Maharaj Admit Date: 03/13/2022 04:08:00 PM Patient Name: Grupo Cheung Visit Number: [id number] Discharge Date: 03/17/2022 03:43:00 PM ATTENTION: The Clinical Documentation Specialists (CDI) and [facility] Coding Staff appreciate your assistance in clarifying documentation. Please respond to the clarification below the line at the bottom and electronically sign. The CDI & [facility] Coding staff will review the response and follow-up if needed. Please note: Queries are made part of the Legal Health Record. If you have any questions, please contact the author of this message via ITS. Dr. Ben Buchanan Irrigation and debridement is documented in the 03/14 OP report. Additional clarification regarding the procedure and depth of debridement is requested. History/Risk Factors: Status post cervical fusion Clinical Indicators: postoperative cervical hematoma Treatment: Removal of hematoma Irrigation and debridement with excisional debridement of hematoma with drain placed. Please clarify the type of procedure performed: [ x ] Excisional debridement (the removal of necrotic, devitalized tissue or slough by means of cutting away of tissue) Skin, Sub q and fascia [ x ] Excisional debridement down to bone [ x ] Excisional debridement down to muscle [ ] Non-excisional debridement (the removal of necrotic, devitalized tissue or slough by means of flushing, brushing, or washing. (Irrigation) [ ] Other; please specify [ ] Unable to determine Five elements required for accurate and compliant documentation of a debridement: Technique used (e.g., excisional, excised, cutting, brushing, jet lavage etc.) Instrument(s) used (e.g., scalpel, curette, etc.) Nature of the tissue removed (e.g., necrotic, devitalized tissues, non-viable tissue, etc.) Appearance and size of the wound (e.g., down to fresh bleeding tissue, 7cm x 10cm, etc.) Depth of the debridement* (e.g., skin, subcutaneous tissue, fascia, muscle, bone, etc.) I performed a irrigation and debridement with excisional debridement. I dissected down to the level of the bone at the anterior cervical spine. There was some denuded granular tissue around the anterior aspect of the bone and along the musculature which was removed appropriately. There is some denuded tissue along the skin and subcu tissue as well. The wound incision size was approximately 3 cm in length and depth was approximately 4 cm. In width with approximately 3 cm. MTDD
== END 2022-03-17 15:43 | DRG 908 ==
LOC: EC 12:38 → 4SSUR 16:08
PROVIDERS: ADMIT Internal Medicine; ATTEND Internal Medicine
PROC: 0PB30ZZ Excision of Cervical Vertebra, Open Approach (ICD-10-PCS; principal; 2022-03-13)
PROC: 0KC20ZZ Extirpation of Matter from Right Neck Muscle, Open Approach (ICD-10-PCS; 2022-03-13)
DX: M96.840 Postprocedural hematoma of a musculoskeletal structure following a musculoskeletal system procedure (principal); D61.82 Myelophthisis; G99.2 Myelopathy in diseases classified elsewhere; G95.89 Other specified diseases of spinal cord; Z98.1 Arthrodesis status; K21.9 Gastro-esophageal reflux disease without esophagitis; M48.02 Spinal stenosis, cervical region; E78.5 Hyperlipidemia, unspecified; M54.12 Radiculopathy, cervical region; I25.10 Atherosclerotic heart disease of native coronary artery without angina pectoris; I10 Essential (primary) hypertension; H91.90 Unspecified hearing loss, unspecified ear; I25.2 Old myocardial infarction; R13.10 Dysphagia, unspecified; R29.6 Repeated falls; S14.129A Central cord syndrome at unspecified level of cervical spinal cord, initial encounter; W19.XXXA Unspecified fall, initial encounter; Y92.009 Unspecified place in unspecified non-institutional (private) residence as the place of occurrence of the external cause; Z79.02 Long term (current) use of antithrombotics/antiplatelets; Z79.52 Long term (current) use of systemic steroids; Z79.82 Long term (current) use of aspirin; Z79.899 Other long term (current) drug therapy; Z85.828 Personal history of other malignant neoplasm of skin; Z87.891 Personal history of nicotine dependence; Z95.1 Presence of aortocoronary bypass graft; Z95.5 Presence of coronary angioplasty implant and graft; Z96.611 Presence of right artificial shoulder joint; Z98.890 Other specified postprocedural states
CPT/HCPCS: 36415; 72050; 72125; 80048; 80053; 85025; 85610; 85730; 87070; 87075; 87205; 96361; 96374; 96375; 96376; 99285

== ENCOUNTER → 2022-07-24 | Outpatient (CLI) | payer MEDICARE ==
--- NOTE | 2022-07-24 13:37 | XR ---
EXAMINATION TYPE: XR chest 2V DATE OF EXAM: 07/24/2022 COMPARISON: NONE HISTORY: Shortness of breath TECHNIQUE: Frontal and lateral views of the chest are obtained. FINDINGS: Scattered senescent parenchymal changes noted. Hyperinflation compatible with COPD. No evidence for infiltrate. No evidence for atelectasis. Heart size is stable. Mediastinal structures are stable and grossly unremarkable. No evidence for hilar prominence. Degenerative changes dorsal spine. IMPRESSION: 1. No evidence for acute pulmonary disease.
[2022-07-24 14:15] LABS: Partial Thromboplastin Time 25.8 sec (22.0-30.0)
[2022-07-24 18:01] LABS: Appearance,Urine Clear (Clear); Bilirubin,Urine Negative (Negative); Blood,Urine Negative (Negative); Color,Urine Yellow (Yellow); Ketones,Urine Negative (Negative); Nitrite,Urine Negative (Negative); PH, Urine 5.5 (5.0-8.0); Specific Gravity,Urine 1.018 (1.001-1.030); Urobilinogen,Urine 0.2 (0.2,1.0)
[2022-07-24 18:07] LABS: Bacteria,Urine None Seen /HPF (None Seen)
[2022-07-24 19:10] LABS: African American GFR (CKD) 75.7 (60.0-200.0); Anion Gap 8.9 mmol/L (10.00-18.00); BUN/Creat Ratio 14.09 Ratio (12.00-20.00); Blood Urea Nitrogen 15.5 mg/dL (9.0-27.0); Calcium 9.5 mg/dL (8.7-10.3); Carbon Dioxide 24.1 mmol/L (20.0-27.5); Non-African American GFR(CKD) 65.3 (60.0-200.0); Potassium 4.3 mmol/L (3.5-5.5)
[2022-07-24 20:59] LABS: Basophils # (A) 0.04 X 10*3/uL (0.00-0.10); Basophils % (A) 0.6 %; Eosinophils # (A) 0.32 X 10*3/uL (0.04-0.35); Eosinophils % (A) 4.9 %; HCT 39.8 % (39.6-50.0); HGB 13.7 g/dL (13.0-17.0); Immature Grans, Automated 0.3 %; Lymphocytes # (A) 1.15 X 10*3/uL (0.90-5.00); Lymphocytes % (A) 17.5 %; MCH 30.7 pg (27.0-32.0); MCHC 34.4 g/dL (32.0-37.0); MCV 89.2 fL (80.0-97.0); Monocytes # (A) 0.65 X 10*3/uL (0.20-1.00); Monocytes % (A) 9.9 %; NRBC Per 100 WBC 0 /100 WBCS (0.0-0.0); Neutrophils % (A) 66.8 %; Platelet Count 187 X 10*3/uL (140-440); RBC 4.46 X 10*6/uL (4.40-5.60); RDW 12.6 % (11.5-14.5); WBC 6.58 X 10*3/uL (4.50-10.00)
== END | disposition home or self-care (01) ==
LOC: LABPAT 12:22
PROVIDERS: ATTEND Orthopaedic Surgery Orthopaedic Surgery of the Spine
DX: Z01.818 Encounter for other preprocedural examination (principal); M46.90 Unspecified inflammatory spondylopathy, site unspecified
CPT/HCPCS: 36415; 71046; 80048; 81001; 85025; 85610; 85730; 87070

== ENCOUNTER 2022-08-02 07:43 | Inpatient (IN) | payer MEDICARE ==
[~2022-08-02 07:43] MED LIST changes: +LIDOCAINE 1% (10MG/ML) FOR IV START INTRADERMA PRN; +ONDANSETRON 4 MG/2 ML VIAL IVP ONE
[2022-08-02] MEDS ORDERED: DEXAMETHASONE SOD PHOSPHATE 4 MG/ML 1 ML VIAL IVP ONE (08:26)
[2022-08-02] MEDS ORDERED: LACTATED RINGERS 1,000 ML IV ONE ×4 (08:30→13:42)
[2022-08-02] MEDS ORDERED: MIDAZOLAM 2 MG/2 ML VIAL IVP ONE (09:02)
[2022-08-02] MEDS ORDERED: LIDOCAINE 1% INJ 10MG/ML (10 ML MDV) SQ ONE (09:14)
[2022-08-02] MEDS ORDERED: GELATIN SPONGE,ABSORB (SMALL) 1 EACH SPONGE TOPICAL ONE (09:14)
[2022-08-02] MEDS ORDERED: THROMBIN (BOVINE) 5,000 UNIT VIAL TOPICAL ONE (09:14)
[2022-08-02] MEDS ORDERED: ePHEDrine 50 MG/ML 1 ML VIAL ONE (09:36)
[2022-08-02] MEDS ORDERED: GLYCOPYRROLATE 0.2 MG/ML 2 ML VIAL ONE (09:36)
[2022-08-02] MEDS ORDERED: LIDOCAINE 2% INJ 20 MG/ML (2 ML VIAL) ONE (09:36)
[2022-08-02] MEDS ORDERED: ROCURONIUM 10 MG/ML (5 ML VIAL) IV ONE (09:36)
[2022-08-02] MEDS ORDERED: PROPOFOL 10 MG/ML 20 ML VIAL IV ONE (09:36)
[2022-08-02] MEDS ORDERED: KETAMINE 10 MG/ML 20 ML VIAL ONE (09:36)
[2022-08-02] MEDS ORDERED: HEPARIN SODIUM,PORCINE 10,000 UNIT/ML 1 ML VIAL ONE (09:36)
[2022-08-02] MEDS ORDERED: NEOSTIGMINE 1 MG/ML 10 ML VIAL ONE (09:36)
[2022-08-02] MEDS ORDERED: fentaNYL (PF) 50 MCG/ML 2 ML AMP ONE (09:36)
[2022-08-02] MEDS ORDERED: HYDROmorphone (PF) 1 MG/ML ONE (09:36)
[2022-08-02] MEDS ORDERED: PHENYLEPHRINE-0.9% NACL SYG 1,000 MCG/10 ML SYRINGE ONE (09:36)
[2022-08-02] MEDS ORDERED: SUCCINYLCHOLINE CHLORIDE 200 MG/10 ML VIAL IV ONE (09:36)
[2022-08-02] MEDS ORDERED: SODIUM CHLORIDE 0.9% IRRIG 1,000 ML BTL IRRIGATION ONE (09:36)
--- NOTE | 2022-08-02 13:59 | XR ---
Fluoroscopy History: SPONDYLOLITHESIS SPINAL STENOSIS SPONDYLOLITHESIS SPINAL STENOSIS. FL time:19 seconds. 5 images manually scanned in to pacs
[2022-08-02] MEDS ORDERED: HYDROmorphone 0.5 MG/0.5 ML SYRINGE IVP PRN (14:02)
[2022-08-02] MEDS ORDERED: BENZOCAINE/MENTHOL LOZENG 1 EACH LOZENGE MUCOUS MEM PRN (14:02)
[2022-08-02] MEDS ORDERED: MAGNESIUM HYDROXIDE 2,400 MG/10 ML CUP PO PRN (14:02)
[2022-08-02] MEDS ORDERED: ONDANSETRON 4 MG/2 ML VIAL IVP PRN (14:02)
--- NOTE | 2022-08-02 14:02 | P.OP ---
Date of Procedure: 08/02/22 Preoperative Diagnosis: Spondylolisthesis L4 5, recurrent stenosis L4 5, vital stenosis L3 4, history of laminectomy and discectomy L4 5, low back pain, facet arthritis, lower chin radiculopathy, neurogenic claudication, degenerative disc disease, facet arthritis Postoperative Diagnosis: Same Anesthesia: GETA Pathology: none sent Condition: stable Disposition: PACU Description of Procedure: DESCRIPTION OF PROCEDURE(S): BRIEF OPERATIVE NOTE Preoperative Diagnosis: Spondylolisthesis L4 5, recurrent stenosis L4 5, vital stenosis L3 4, history of laminectomy and discectomy L4 5, low back pain, facet arthritis, lower chin radiculopathy, neurogenic claudication, degenerative disc disease, facet arthritis Postoperative Diagnosis: Spondylolisthesis L4 5, recurrent stenosis L4 5, vital stenosis L3 4, history of laminectomy and discectomy L4 5, low back pain, facet arthritis, lower chin radiculopathy, neurogenic claudication, degenerative disc disease, facet arthritis Procedure: Revision Laminectomy and decompression L4 5 Laminectomy and decompression L3 [address] navigation aided Minimally invasive Posterior lateral decompression and facet fusion L3 4 L4 5 Minimally invasive Transforaminal lumbar interbody fusion for a 360 fusion L3 4 and L4 5 Discectomy for decompression L3 4 L4 5 Placement of interbody graft L3 4 L4 5 Use of computer navigation for fusion L3 4 and 5 Local autogenous bone grafting Aspiration of bone marrow from the vertebral body pedicle L3 on the right Use of bone graft extenders Surgeon: Dr. Kramer Dog Raiser: Missy BARON who is present throughout the entire the case persistence during positioning, dissection, exposure, visualization, and all crucial elements of the case as well as closure. Anesthesia: General anesthesia per Estimated blood loss: Approximately 500 mL, with just over 200 mL given back through Cell Saver Complications: None apparent Components implanted: K2M minimally invasive [place] pedicle screw system withscrews measuring 6.5 mm in diameter to rods one Loco interbody cage with 10 mL of osteo amp bio4 bone graft substitute and 30 mL of the BX bone fibers to supplement the local autogenous bone graft and bone marrow aspirate Disposition: To recovery room in good stable condition. OPERATIVE INDICATIONS The patient has had severe issues at their lower extremity in her lower back over the past several years with significant worsening over the past several months. Over the past few months the patient had pain at their back and their lower extremities. The patient is having severe radicular symptoms at their lower extremity with weakness. The patient is having significant pain in their back. They are unable to obtain any comfort. He has a history of laminectomy and discectomy in 2014 at L4 5 for disc herniation and stenosis. He did very well with that he was very happy with the results of that person numbers of years however over the past few years he has been having worsening in the past several months evidence initially painful for him at his back and in his lower extremities. He was found to have evidence of a dynamic spondylolisthesis and significant stenosis at L3 4 and L4 5. We did aggressive conservative treatment with medications therapy and interventional pain management however thery were not having any relief. The patient also showed evidence of a listhesis with some dynamic instability. The patient has been through conservative treatment. We discussed various treatment options including surgery, and the patient wishes to proceed with surgery We discussed the risk, patient's alternatives and benefits of surgery including but not limited to, risk of bleeding risk of infection, risk of need for further surgery, risk of decreased, loss of motion, muscle function, malunion nonunion, hardware failure, nerve damage, paralysis, heart attack, blindness and . They understood issues with the current pandemic and the possibility of exposure. OPERATIVE SUMMARY After discussing all the risks, patient alternatives and benefits at length, the patient elected to proceed with surgical intervention, signed informed consent, and presented for their procedure. The patient was seen and examined in the preoperative holding area and the surgical site was marked. The patient was given antibiotics and brought to the operating room. The patient was sedated and intubated by anesthesia in standard fashion. The patient was positioned on to the operating room table in a prone position on the appropriate frame which was well-padded and well molded. We were careful to pad any bony prominences and pressure points. We were careful to maintain the patient's cervical spine and good neutral alignment and position throughout. The patient was prepped and draped in a normal standard fashion. An appropriate timeout and keystone protocol performed. We were able to proceed with the surgery. The local wound area was infiltrated with local anesthetic. Over the right iliac crest I was able to make small stab incisions and establish a guidepin screw fixation to the iliac crest 2. I was able place the computer referencing device over the guidepins to establish an appropriate reference point for the Ziem CT navigation. We then were able to place patient in an appropriate drape and do a navigation spin for visualization and 3-D reconstruction of the lumbar spine. I was able utilize C-arm guidance and navigation to establish appropriate position over the pedicles bilaterally at the appropriate levels at L3-L4 and L5 . With the appropriate levels confirmed was able to make small incisions over the appropriate pedicle sites bilaterally at L3 4 and 5. Utilizing the computer navigation device I was able to establish bony landmarks at the right iliac crest for a bony reference point for the navigation device. I was able to establish a Jamshidi needle over the lateral aspect of the pedicle and advanced the trocar into the pedicle being careful not to breech superiorly inferiorly medially or laterally using computer navigation device. Position was confirmed regularly with AP and lateral images on C-arm and with the computer navigation device at the appropriate levels bilaterally. I was able to establish the trocar into the pedicle appropriately into the posterior aspect of the vertebral body bilaterally at the appropriate levels. This was done at each of the pedicle positions and each of the vertebrae. At the superior vertebrae of L3 on the right I was able to take approximately 25 mL of bone aspiration for use later in the case to supplement the allograft and autograft bone. I was able place the guidewire into the trocar and into the vertebral body appropriately under C-arm guidance. Dissection was taken down over the wire to the appropriate starting position for the screw placed. The appropriate length screw was chosen, threaded over the guidewire and screwed appropriately into the pedicle and vertebral body under C-arm guidance in excellent alignment and position with good bony purchase. This is done at each of the screw sites at the appropriate levels at L3-L4 and L5. With the screws intact I extended the incision to connect the screw hole sites on the left side. I dissected down to establish access over the pars and lamina to the base of the spinous process. I was able to expose the facet joint. The capsule the facet was taken down and showed some facet arthrosis at the joint. At L4 5 there was significant scar tissue formation was able to perform a revision laminectomy at that level. I was able to use a combination of curettes and Kerrison rongeurs and a high-speed drill to take down the facet joint and do a facetectomy. I was able get excellent foraminal decompression and central decompression with undermining across midline to perform a laminectomy centrally and contralaterally. As able get good central decompression. The ligamentum flavum was taken down to further decompress centrally and at bilateral neural foramen. I was able to expose the disc space and visualize the traversing nerve root. I was able get central and bilateral foraminal decompression and left facet technique on the left arm for very wide decompression. Note was made of some disc protrusion and disc herniation that was abutting the traversing nerve root at the level causing further compression of the nerve root. I was able to establish a annulotomy at the appropriate level protecting soft tissue and neural structures. Note was made of some disc desiccation at the disc. I performed a complete discectomy with accommodation of curettes and rasps and scrapers. I was able get good endplate preparation at the disc space. I sized for the appropriate size interbody spacer protecting the soft tissue and neural structures. The wound was copiously irrigated and suctioned dry. There is no evidence of any dural tear or leak. This is done first at L4 5 and then L3 4 I was able to pack the disc space with local autogenous bone graft as well as a small amount of bone graft which was also placed into the interbody cage itself. Protecting the soft tissue structures and neural structures I was able place the interbody cage in good alignment and good position with good fit and fill at the interbody space. This is done at L4 5 and then at L3 4 Position was confirmed with C-arm guidance. Good hemostasis maintained. There is no evidence of any dural tear or leak. The wound was irrigated and suctioned dry. With the hardware intact, intraoperative C-arm imaging was again taken which showed good alignment and position of the hardware at the appropriate levels at L3 4 and 5. We were then able to measure, contour and place the rods and appropriate hardware bilaterally. I was able to place capcrews, tighten them down, and torque them with the torque screwdriver appropriately. With this intact I was able to place the local autogenous bone graft with additional bone graft enhancer as necessary into the posterior lateral gutters over the decorticated transverse processes and facet joints on the contralateral side. The remainder of the bone graft was placed over the facet joint on the contrala teral side after taking down the facet joint capsule. With the bone graft intact, a stable construct, and good decompression at the appropriate levels, we were able to proceed with closure. Good hemostasis was maintained. There is no evidence of dural tear or leak. The fascia was closed for a watertight closure. he subcuticular tissue was closed with absorbable suture. The wound was cleaned and dried and dressed with the appropriate dressing. The drapes were broken down. The patient was gently rolled back onto their hospital bed being careful to maintain their cervical spine and good neutral alignment and position. They were woken up by anesthesia, extubated, and brought to the recovery room in good stable condition. The patient will be admitted to the hospital for appropriate postoperative care, medical management and monitoring. We will continue to follow them closely about the postoperative course.
[2022-08-02] MEDS: HYDROmorphone 0.5 MG/0.5 ML SYRINGE IVP PRN ×4 (14:45→15:53)
[2022-08-02] MEDS ORDERED: diphenhydrAMINE 50 MG/ML 1 ML VIAL IVP ONE ×3 (15:24→15:45)
[2022-08-02] MEDS: SODIUM CHLORIDE 0.9% 1,000 ML IV SCH (16:42)
[2022-08-02] MEDS: LACTATED RINGERS 1,000 ML IV SCH (16:46)
--- NOTE | 2022-08-02 21:21 | P.ANPRN ---
Procedure Note - Anesthesia - Invasive Line Left Arterial Line Time Out Performed: Yes (09:01) Date of Procedure: 08/02/22 Time of Procedure: 09:01 Location of Patient: PreOp Preparation: Sterile Prep, Sterile Dressing Arterial Line Location: Radial Ultrasound Used: Yes Purpose - Visualization and Identification of Vasculature: Yes Image Stored and Saved: No Narrative: Central line placement per sterile protocol utilized.
[2022-08-02] MEDS: HYDROmorphone 1 MG/ML 1 ML SYRINGE IVP PRN (21:54)
[2022-08-02] MEDS: MONTELUKAST 10 MG TAB PO SCH (21:55)
[2022-08-02] MEDS: METOPROLOL TARTRATE 50 MG TAB PO SCH (21:55)
[2022-08-02] MEDS: ATORVASTATIN 40 MG TAB PO SCH (21:55)
[2022-08-02] MEDS: PSYLLIUM HUSK 100% 6 GM PACKET PO SCH (21:56)
[2022-08-03] MEDS: HYDROmorphone 1 MG/ML 1 ML SYRINGE IVP PRN ×2 (03:21→17:41)
[2022-08-03] MEDS: LACTATED RINGERS 1,000 ML IV SCH (08:06)
[2022-08-03] MEDS: PANTOPRAZOLE 40 MG TABLET PO SCH (09:19)
[2022-08-03] MEDS: IPRATROPIUM BROMIDE 0.06% NASAL SPRAY (15 ML) EA NOSTRIL SCH (09:19)
[2022-08-03] MEDS: ASPIRIN 81 MG PO SCH (09:19)
[2022-08-03] MEDS: METOPROLOL TARTRATE 50 MG TAB PO SCH ×2 (09:21→22:33)
[2022-08-03] MEDS: lisinopriL 20 MG TAB PO SCH (09:21)
[2022-08-03] MEDS: LORATADINE 10 MG TAB PO SCH (09:21)
[2022-08-03] MEDS: MULTIVITAMINS, THERA 1 EACH TAB PO SCH (09:21)
[2022-08-03] MEDS: PSYLLIUM HUSK 100% 6 GM PACKET PO SCH ×2 (09:21→22:24)
[2022-08-03] MEDS: SENNOSIDES-DOCUSATE SODIUM 1 EACH TAB PO SCH (09:21)
[2022-08-03] MEDS: HYDROcodone/APAP 5-325MG 1 EACH TAB PO PRN ×2 (10:24→22:33)
--- NOTE | 2022-08-03 10:30 | P.PN ---
Progress Note - Text Progress Note Date: 08/03/22 Postoperative day #1 Patient is seen and examined today at bedside. The patient has some pain around the surgical site as expected. Pain is being controlled with medication. The patient is somewhat anxious is morning and this primarily stems from some disconnect in his communicating with the staff. They have been able to provide his medications to him but he has not been able to take them are swallow them while in bed. They had the bed elevated to its maximum position but this still was not high enough for him to be able to swallow. We covered this issue at length and I discussed it with the nursing staff and with the patient at bedside and seems that were on the same page now. Physical Exam Afebrile with stable vital signs Abdomen is soft nontender. Chest has good excursion deep and space expiration The incision site is clean dry and intact. No erythema there is no purulence. His back dressings are clear Extremities have not had neurologic change from prior to surgery. He has sustained resection plantar flexion and EHL. He is able to walk with a walker and two-person standby assist Calves and thighs were soft nontender without evidence of DVT. Assessment/Plan Postoperative day #1 status post minimally invasive decompression fusion L3 4 L4 5 with revision decompression L4 5 for his spondylolisthesis with spinal stenosis and lower extremity radiculopathy Patient is progressing as expected from the surgery. We will continue to increase the patient's mobilization with therapy. As discussed above the patient has great difficulty with swelling and less he is sedated up and leaning forward. He was not able to take his medications overnight while he was in bed and he has significant anxiety in regard to this. We discussed this at length and he seems to have settled down. I discussed this with the nurse and she understands his need to be sitting up and leaning forward in order to take medicines are swallow anything. They will try to do more to help him with this whenever he requires medication. We will try to convert him over to oral medications as well for his pain. We will continue pain control with oral or IV medications. We'll continue to follow patient closely.
[2022-08-03 10:50] LABS: Basophils # (A) 0.05 X 10*3/uL (0.00-0.10); Basophils % (A) 0.4 %; Eosinophils # (A) 0.02 X 10*3/uL (0.04-0.35); Eosinophils % (A) 0.1 %; HCT 35.1 % (39.6-50.0); HGB 11.5 g/dL (13.0-17.0); Immature Grans, Automated 0.4 %; Lymphocytes # (A) 0.72 X 10*3/uL (0.90-5.00); Lymphocytes % (A) 5.2 %; MCH 30.7 pg (27.0-32.0); MCHC 32.8 g/dL (32.0-37.0); MCV 93.6 fL (80.0-97.0); Mean Platelet Volume 11.3 fL (9.5-12.2); Monocytes # (A) 1.37 X 10*3/uL (0.20-1.00); Monocytes % (A) 9.9 %; NRBC Per 100 WBC 0 /100 WBCS (0.0-0.0); Neutrophils # (A) 11.55 X 10*3/uL (1.80-7.70); Platelet Count 163 X 10*3/uL (140-440); RBC 3.75 X 10*6/uL (4.40-5.60); RDW 12.7 % (11.5-14.5); WBC 13.77 X 10*3/uL (4.50-10.00)
[2022-08-03 10:53] LABS: African American GFR (CKD) 75.7 (60.0-200.0); Anion Gap 10.7 mmol/L (10.00-18.00); BUN/Creat Ratio 16.45 Ratio (12.00-20.00); Blood Urea Nitrogen 18.1 mg/dL (9.0-27.0); Calcium 8.5 mg/dL (8.7-10.3); Carbon Dioxide 24.3 mmol/L (20.0-27.5); Non-African American GFR(CKD) 65.3 (60.0-200.0); Potassium 4.3 mmol/L (3.5-5.5)
[2022-08-03] MEDS: SODIUM CHLORIDE 0.9% 1,000 ML IV SCH ×2 (12:07→22:51)
[2022-08-03] MEDS: ATORVASTATIN 40 MG TAB PO SCH (22:27)
[2022-08-03] MEDS: MONTELUKAST 10 MG TAB PO SCH (22:29)
--- NOTE | 2022-08-04 00:43 | P.CONS ---
History of Present Illness - Reason for Consult Consult date: 08/03/22 Medical management - Chief Complaint Status post laminectomy and decompression of L4-L5 L3-L4 - History of Present Illness Patient is a 77-year-old male with a known history of coronary disease status post CABG, hypertension, hyperlipidemia, hearing disorder/deafness, history of [place] and prior history of smoking was admitted to the hospital for elective revision laminectomy and decompression L4-L5 L3-L4. Patient does have spondylosis of the L4-L5 recurrent stenosis and history of laminectomy. Patient tolerated the procedure well. Currently complains of lower back pain. No fever or chills. No cough or sputum production. No headache or dizziness or lightheadedness. Laboratory data showed WBC 13.7 hemoglobin 11.5 and platelets 163 Sodium 141 potassium 4.3 chloride 106 bicarb is 24.3 BUN 18.1 and creatinine 1.1 and calcium 8.5 Review of Systems Constitutional: Patient denies any fever or chills . no Generalized weakness. Abdomen: Patient denied any nausea or vomiting or abd. pain Cardiovascular: Patient denies any chest pain or short of breath no palp itations. Respiratory: patient denied any cough . no sputum production. No shortness of breath Neurologic: Patient denied any numbness or tingling headache. Musculoskeletal: Patient denies any complaints of joint swelling or deformity. Patient does complain of back pain. Skin: Negative Psychiatric: Negative Endocrine: No heat or cold intolerance. No recent weight gain. Genitourinary: No dysuria or hematuria. All other 14 point ROS negative except the above Past Medical History Past Medical History: Coronary Artery Disease (CAD), Cancer, GERD/Reflux, Hearing Disorder / Deafness, Hyperlipidemia, Hypertension, Myocardial Infarction ([place]), Osteoarthritis (OA) Additional Past Medical History / Comment(s): hx. 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 but is starting to improve Last Myocardial Infarction Date:: 2009 EST History of Any Multi-Drug Resistant Organisms: None Reported Past Surgical History: Back Surgery, Coronary Bypass/CABG, Heart Catheterization, Heart Catheterization With Stent, Joint Replacement, Orthopedic Surgery Additional Past Surgical History / Comment(s): HEMORRHOIDECTOMY. LT SHOULDER SURG. [facility]. LT FOOT SURG. UVULA REMOVED, quad bypass 2016, right shoulder replacement December 2021, several colonoscopies, cervical fusion in March/2022 & then more surg. for hematoma in cervical area later in March Past Anesthesia/Blood Transfusion Reactions: Previous Problems w/ Anesthesia Additional Past Anesthesia/Blood Transfusion Reaction / Comm: trouble urinating after recent shoulder replacement in December & had to be cathed, states back in 2013 was told hard time getting tube down throat but more recent surgeries no one has said he had any problems, woke up in past during a surgery Date of Last Stent Placement:: 2009 Smoking Status: Former smoker - Past Family History Mother Family Medical History: Cancer Medications and Allergies Home Medications Medication Instructions Recorded Confirmed Type Aspirin 81 mg PO DAILY 06/19/14 08/02/22 History Esomeprazole Magnesium [NexIUM] 40 mg PO DAILY 06/19/14 08/02/22 History Lisinopril [Zestril] 40 mg PO DAILY 06/19/14 08/02/22 History Metoprolol Tartrate [Lopressor] 100 mg PO BID 06/19/14 08/02/22 History Multivitamin [Men's Multi-Vitamin] 1 tab PO DAILY 06/19/14 08/02/22 History Atorvastatin [Lipitor] 40 mg PO HS 03/02/22 08/02/22 History Cetirizine HCl [Zyrtec] 10 mg PO DAILY 03/02/22 08/02/22 History Ipratropium Benson 0.06%Nasal 1 spray EA NOSTRIL DAILY 03/02/22 08/02/22 History [Atrovent Nasal 0.06%] Montelukast [Singulair] 10 mg PO HS 03/02/22 08/02/22 History Psyllium Husk [Metamucil] 0.4 gm PO BID 03/02/22 08/02/22 History Acetaminophen [Tylenol] 500 mg PO Q4-6H PRN 03/06/22 08/02/22 History Allergies Allergy/AdvReac Type Severity Reaction Status Date / Time aspirin AdvReac Abdominal Verified 08/02/22 08:07 Pain cyclobenzaprine AdvReac "Lost Verified 08/02/22 08:07 [From Flexeril] control of his body" sleeping pill-name unknown AdvReac dizzy, N/V Uncoded 08/02/22 08:07 Physical Exam Vitals: Vital Signs Temp Pulse Pulse Resp BP Pulse Ox 08/03/22 08:00 98.7 F 91 17 128/65 93 L 08/03/22 01:16 98.9 F 91 18 121/64 96 08/02/22 18:55 97.6 F 73 18 144/67 96 08/02/22 16:42 98.2 F 73 17 132/63 97 08/02/22 16:00 64 16 124/56 99 08/02/22 15:40 66 17 158/69 100 08/02/22 15:35 62 16 145/67 97 08/02/22 15:20 62 16 131/53 100 08/02/22 15:05 55 L 18 139/63 100 08/02/22 14:50 60 16 139/63 100 08/02/22 14:35 68 16 142/62 100 08/02/22 14:22 97.2 F L 77 20 155/65 98 Intake and Output 08/02/22 08/03/22 08/03/22 22:59 06:59 14:59 Intake Total 850 Output Total 125 225 250 Balance 725 -225 -250 Intake: IV 850 Output: Urine 125 225 250 Uretheral (Salvador) 250 Other: Voiding Method Indwelling Catheter Weight 93.8 kg PHYSICAL EXAMINATION: Patient is lying in the bed comfortably, no acute distress, awake alert and oriented.. HEENT: Normocephalic. Neck is supple. Pupils reactive. Nostrils clear. Oral cavity is moist. Neck reveals no JVD, carotid bruits, or thyromegaly. CHEST EXAMINATION: Trachea is central. Symmetrical expansion. Lung campos clear to auscultation and percussion. CARDIAC: Normal S1, S2 with no gallops. No murmurs ABDOMEN: Soft. Bowel sounds present. Nontender. No organomegaly. No abdominal bruits. Extremities: reveal no edema. No clubbing or cyanosis Neurologically awake, alert, oriented x3 with well-coordinated movements. No focal deficits noted Skin: No rash or skin lesions. Psychiatric: Coperative. Nonsuicidal, Musculoskeletal: No joint swelling or deformity. Normal range of motion. Results CBC & Chem 7: 08/03/22 06:14 08/03/22 06:14 Assessment and Plan Assessment: S/p revision laminectomy and decompression L4-L5 and L3-L4 postoperative day 1 Leukocytosis likely post surgical inflammatory reaction History of coronary artery status post CABG Hypertension Hyperlipidemia History of [place] Osteoarthritis Hearing disorder/deafness Chronic back pain Prior history of smoking Plan: Patient will be continued pain management, bowel regimen and incentive spirometry. Continue with blood pressure medications including lisinopril and continue with aspirin and statins. Continue with home medications and will follow closely further recommendation based on clinical course. Thank you for your consult. Time with Patient: Greater than 30
[2022-08-04] MEDS: PANTOPRAZOLE 40 MG TABLET PO SCH (06:54)
[2022-08-04] MEDS: HYDROcodone/APAP 5-325MG 1 EACH TAB PO PRN ×2 (06:54→17:52)
[2022-08-04] MEDS: MULTIVITAMINS, THERA 1 EACH TAB PO SCH ×2 (08:22→08:28)
[2022-08-04] MEDS: SENNOSIDES-DOCUSATE SODIUM 1 EACH TAB PO SCH (08:22)
[2022-08-04] MEDS: IPRATROPIUM BROMIDE 0.06% NASAL SPRAY (15 ML) EA NOSTRIL SCH (08:22)
[2022-08-04] MEDS: LORATADINE 10 MG TAB PO SCH (08:22)
[2022-08-04] MEDS: lisinopriL 20 MG TAB PO SCH (08:22)
[2022-08-04] MEDS: PSYLLIUM HUSK 100% 6 GM PACKET PO SCH ×2 (08:22→21:17)
[2022-08-04] MEDS: METOPROLOL TARTRATE 50 MG TAB PO SCH ×2 (08:23→21:17)
[2022-08-04] MEDS: ASPIRIN 81 MG PO SCH (08:23)
[2022-08-04] MEDS: LACTATED RINGERS 1,000 ML IV SCH (10:29)
--- NOTE | 2022-08-04 14:03 | P.PN ---
Subjective Progress Note Date: 08/04/22 This patient is a 77-year-old male who is status-post minimally invasive decompression fusion L3-4 L4-5 with revision decompression L4-5 on 08/02/[address] Kramer. Today is post-operative day #2. Patient is examined bedside this morning. He is currently up to the bedside chair. He continues to experience moderate pain in the low back, although it is manageable at this time on oral medication. Per physical therapy and nursing, he was a 2 person assist to the chair this morning. Patient otherwise feels well and has no new complaints at this time. He is voiding without issue but has not yet had a bowel movement. Vital signs stable. Objective - Vital Signs Vital signs: Vital Signs Temp 98.1 F 08/04/22 01:35 Pulse 83 08/04/22 01:35 Resp 18 08/04/22 01:35 BP 156/69 08/04/22 01:35 Pulse Ox 93 L 08/04/22 01:35 FiO2 Intake & Output 08/03/22 08/04/22 08/04/22 18:59 06:59 18:59 Intake Total 1450 Output Total 450 375 Balance 1000 -375 Intake: Intake, IV Titration 950 Amount Sodium Chloride 0.9% 1, 900 000 ml @ 50 mls/hr IV . Q20H [facility] Rx#:[id number] ceFAZolin 2 gm In Sodium 50 Chloride 0.9% 50 ml @ 100 mls/hr IVPB Q8H [facility] Rx#: [id number] Oral 500 Output: Urine 450 375 Uretheral ([place]) 250 Other: Voiding Method Urinal Urinal # Voids 2 # Bowel Movements 0 - Exam On examination, patient is sitting up in the bedside chair in no apparent distress. He is alert and orientated x3. On inspection of his low back, there are clean, dry, intact Optifoam dressings in place with no bleeding or drainage through the dressings. No erythema, warmth. No signs of infection. Motor and sensory function intact of the bilateral lower extremities. He has good strength and [id number] of the bilateral ankles and toes. Calves are soft and non- tender to palpation bilaterally. - Labs CBC & Chem 7: 08/03/22 06:14 08/03/22 06:14 Assessment and Plan Assessment: Status-post minimally invasive decompression fusion L3-4 L4-5 with revision decompression L4-5 on 08/02/22. Post-operative day #2. Plan: - Patient may continue to mobilize as tolerated. Patient should continue to work with physical therapy to increase his mobilization. - Keep operative dressings intact. - Pain management as needed. Decrease use of IV medications as tolerated. - Internal medicine consultation for renuka-operative medical management. - Anticipate discharge home tomorrow. Patient was seen and examined today at bedside. He is still having significant difficulty trying to mobilize and walk around. He is able to move his legs well in bed. He is eating better. His pain is controlled with oral medications. He has not yet had a bowel movement. It'll take another 1 or 2 days before he is ready for discharge home safely. We will continue to monitor him closely. I agree with the dictation above.
[2022-08-04] MEDS: SODIUM CHLORIDE 0.9% 1,000 ML IV SCH (17:18)
[2022-08-04] MEDS: ATORVASTATIN 40 MG TAB PO SCH (21:17)
[2022-08-04] MEDS: MONTELUKAST 10 MG TAB PO SCH (21:17)
--- NOTE | 2022-08-05 09:27 | P.PN ---
Progress Note - Text Progress Note Date: 08/05/22 Postoperative day #3 Patient is seen and examined today at bedside. The patient has some pain around the surgical site as expected. He is moving somewhat better but still has difficulty getting up and mobilizing on his own. He still requiring standby assist. He is not yet had a bowel movement but is passing gas.Pain is being controlled with medication. Physical Exam Afebrile with stable vital signs Abdomen is soft nontender. Chest has good excursion deep and space expiration The incision site is clean dry and intact. No erythema there is no purulence. Extremities have not had neurologic change from prior to surgery.He has good strength with hip flexion and knee extension dorsal flexion plantar flexion his lower extremities. Calves and thighs were soft nontender without evidence of DVT. Assessment/Plan Postoperative day #3 status post minimally invasive decompression fusion L3 4 L4 5 with revision decompression L4 5 for his severe spinal stenosis with spondylolisthesis and lower extremity radiculopathy Patient is progressing A bit slowlyas expected from the surgery. He is moving better but still having significant difficulty mobilizing on his own and he is not safe mobilizing on his own yet We will continue to increase the patient's mobilization with therapy. He is not yet had a bowel movement but is passing gas and tolerating his oral diet adequately. We will continue pain control with oral or IV medications. He'll need at least another day before discharge and may need to more nights here in Hospital. We discussed that if he is still requiring more help at that point that he may need residential before returning home. He is hopeful to be able to go home at discharge.We'll continue to follow patient closely.
[2022-08-05] MEDS: PANTOPRAZOLE 40 MG TABLET PO SCH (09:36)
[2022-08-05] MEDS: LACTATED RINGERS 1,000 ML IV SCH (09:36)
[2022-08-05] MEDS: ASPIRIN 81 MG PO SCH (09:37)
[2022-08-05] MEDS: LORATADINE 10 MG TAB PO SCH (09:37)
[2022-08-05] MEDS: lisinopriL 20 MG TAB PO SCH (09:37)
[2022-08-05] MEDS: IPRATROPIUM BROMIDE 0.06% NASAL SPRAY (15 ML) EA NOSTRIL SCH (09:37)
[2022-08-05] MEDS: METOPROLOL TARTRATE 50 MG TAB PO SCH ×2 (09:38→20:34)
[2022-08-05] MEDS: PSYLLIUM HUSK 100% 6 GM PACKET PO SCH ×2 (09:38→20:34)
[2022-08-05] MEDS: SENNOSIDES-DOCUSATE SODIUM 1 EACH TAB PO SCH (09:38)
[2022-08-05] MEDS: SODIUM CHLORIDE 0.9% 1,000 ML IV SCH (15:14)
[2022-08-05] MEDS: HYDROcodone/APAP 5-325MG 1 EACH TAB PO PRN (20:33)
[2022-08-05] MEDS: ATORVASTATIN 40 MG TAB PO SCH (20:34)
[2022-08-05] MEDS: MONTELUKAST 10 MG TAB PO SCH (20:34)
[2022-08-06] MEDS: PANTOPRAZOLE 40 MG TABLET PO SCH (06:45)
[2022-08-06] MEDS: LACTATED RINGERS 1,000 ML IV SCH (07:43)
[2022-08-06] MEDS: SODIUM CHLORIDE 0.9% 1,000 ML IV SCH (07:44)
[2022-08-06] MEDS: ASPIRIN 81 MG PO SCH (07:44)
[2022-08-06] MEDS: PSYLLIUM HUSK 100% 6 GM PACKET PO SCH ×2 (08:01→22:11)
[2022-08-06] MEDS: METOPROLOL TARTRATE 50 MG TAB PO SCH ×2 (08:01→22:12)
[2022-08-06] MEDS: lisinopriL 20 MG TAB PO SCH (08:01)
[2022-08-06] MEDS: MULTIVITAMINS, THERA 1 EACH TAB PO SCH (08:01)
[2022-08-06] MEDS: LORATADINE 10 MG TAB PO SCH (08:01)
[2022-08-06] MEDS: SENNOSIDES-DOCUSATE SODIUM 1 EACH TAB PO SCH (08:01)
[2022-08-06] MEDS: IPRATROPIUM BROMIDE 0.06% NASAL SPRAY (15 ML) EA NOSTRIL SCH (08:02)
[2022-08-06] MEDS ORDERED: bisacodyL 10 MG SUPP RECTAL PRN (08:39)
[2022-08-06] MEDS ORDERED: NA PHOS,M-B/NA PHOS,DI-BA 133 ML ENEMA RECTAL PRN (08:39)
--- NOTE | 2022-08-06 08:39 | P.PN ---
Progress Note - Text Progress Note Date: 08/06/22 Postoperative day #4 Patient is seen and examined today at bedside. The patient has some pain around the surgical site as expected. He feels like he is making progress. He thinks she's made improvement in his mobilization. He is still not having a bowel movement. He is passing gas but no bowel movement. He is appetite is improved and he is eating better. He denies any nausea or vomiting. Pain is being controlled with medication. Physical Exam Afebrile with stable vital signs Abdomen is soft nontender. Chest has good excursion deep and space expiration The incision site is clean dry and intact. No erythema there is no purulence. Dressings clear Extremities have not had neurologic change from prior to surgery. He has sustained dorsal flexion and EHL in flexion and knee extension Calves and thighs were soft nontender without evidence of DVT. Assessment/Plan Postoperative day #4 status post minimally invasive decompression fusion L3 4 L4 5 with revision to compression L4 5 for his recurrent stenosis with spondylolisthesis lower extremity radiculopathy Patient is progressing a little bit slowly from the surgery in terms of his mobilization. He has somewhat turn the corner and is eating better and is able to stand up off on his own with an assistive device but still need someone standing by for his safety. We will continue to increase the patient's mobilization with therapy. He is eating better but he is still not had a bowel movement. He has a issues with constipation the past and hopefully he will be able have bowel movements a before discharged home with home care or to [facility] likely tomorrow We will continue pain control with oral or IV medications. We'll continue to follow patient closely.
[2022-08-06] MEDS: HYDROcodone/APAP 5-325MG 1 EACH TAB PO PRN (15:51)
[2022-08-06] MEDS: ATORVASTATIN 40 MG TAB PO SCH (22:12)
[2022-08-06] MEDS: MONTELUKAST 10 MG TAB PO SCH (22:12)
--- NOTE | 2022-08-07 00:55 | P.PN ---
Subjective Progress Note Date: 08/04/22 Patient is a 77-year-old male with a known history of coronary disease status post CABG, hypertension, hyperlipidemia, hearing disorder/deafness, history of [place] and prior history of smoking was admitted to the hospital for elective revision laminectomy and decompression L4-L5 L3-L4. 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 Patient tolerated the procedure well. Currently complains of lower back pain. No fever or chills. No cough or sputum production. No headache or dizziness or lightheadedness. Laboratory data showed WBC 13.7 hemoglobin 11.5 and platelets 163 Sodium 141 potassium 4.3 chloride 106 bicarb is 24.3 BUN 18.1 and creatinine 1.1 and calcium 8.5 08/04/2022 patient is status post surgery postoperative day 2 Currently sitting in the chair. Complains of back pain but improving. Currently on pain management. Patient is requiring 2 person assistance for chair and ambulation. Otherwise patient denied any diarrhea. No complaints abdominal pain. No nausea vomiting. No cough or sputum breath. No chest pain or shortness of breath. Laboratory data reviewed. PT OT is on board. Current medications reviewed. Objective - Vital Signs Vital signs: Vital Signs Temp 98.5 F 08/04/22 19:21 Pulse 82 08/04/22 19:21 Resp 18 08/04/22 19:21 BP 148/71 08/04/22 19:21 Pulse Ox 94 L 08/04/22 19:21 FiO2 Intake & Output 08/04/22 08/04/22 08/05/22 06:59 18:59 06:59 Intake Total 1300 Output Total 375 Balance -375 1300 Intake: Intake, IV Titration 1000 Amount Lactated Ringers 1,000 ml 0 @ 0 mls/hr IV .[facility] Rx#:[id number] Lactated Ringers 1,000 ml 0 @ 0 mls/hr IV .[facility] Rx#:[id number] Lactated Ringers 1,000 ml 0 @ 0 mls/hr IV .[facility] Rx#:[id number] Lactated Ringers 1,000 ml 0 @ 0 mls/hr IV .[facility] Rx#:[id number] Lactated Ringers 1,000 ml 0 @ 20 mls/hr IV .Q24H [facility] Rx#:[id number] Sodium Chloride 0.9% 1, 1000 000 ml @ 50 mls/hr IV . Q20H [facility] Rx#:[id number] Oral 300 Output: Urine 375 Other: Voiding Method Urinal Bedside Commode Urinal # Voids 4 - Exam PHYSICAL EXAMINATION: Patient is lying in the bed comfortably, no acute distress, awake alert and oriented.. HEENT: Normocephalic. Neck is supple. Pupils reactive. Nostrils clear. Oral cavity is moist. Neck reveals no JVD, carotid bruits, or thyromegaly. CHEST EXAMINATION: Trachea is central. Symmetrical expansion. Lung campos clear to auscultation and percussion. CARDIAC: Normal S1, S2 with no gallops. No murmurs ABDOMEN: Soft. Bowel sounds present. Nontender. No organomegaly. No abdominal bruits. Extremities: reveal no edema. No clubbing or cyanosis Neurologically awake, alert, oriented x3 with well-coordinated movements. No focal deficits noted Skin: No rash or skin lesions. Psychiatric: Coperative. Nonsuicidal, Musculoskeletal: No joint swelling or deformity. Normal range of motion. - Labs CBC & Chem 7: 08/03/22 06:14 08/03/22 06:14 Assessment and Plan Assessment: S/p revision laminectomy and decompression L4-L5 and L3-L4 postoperative day 2 Leukocytosis likely post surgical inflammatory reaction History of coronary artery status post CABG Hypertension Hyperlipidemia History of [place] Osteoarthritis Hearing disorder/deafness Chronic back pain Prior history of smoking Plan: Patient will be continued pain management, bowel regimen and incentive spirometry. Continue with blood pressure medications including lisinopril and continue with aspirin and statins. Continue with home medications and will follow closely further recommendation based on clinical course.
--- NOTE | 2022-08-07 01:02 | P.PN ---
Subjective Progress Note Date: 08/05/22 Patient is a 77-year-old male with a known history of coronary disease status post CABG, hypertension, hyperlipidemia, hearing disorder/deafness, history of [place] and prior history of smoking was admitted to the hospital for elective revision laminectomy and decompression L4-L5 L3-L4. 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 Patient tolerated the procedure well. Currently complains of lower back pain. No fever or chills. No cough or sputum production. No headache or dizziness or lightheadedness. Laboratory data showed WBC 13.7 hemoglobin 11.5 and platelets 163 Sodium 141 potassium 4.3 chloride 106 bicarb is 24.3 BUN 18.1 and creatinine 1.1 and calcium 8.5 08/04/2022 patient is status post surgery postoperative day 2 Currently sitting in the chair. Complains of back pain but improving. Currently on pain management. Patient is requiring 2 person assistance for chair and ambulation. Otherwise patient denied any diarrhea. No complaints abdominal pain. No nausea vomiting. No cough or sputum breath. No chest pain or shortness of breath. Laboratory data reviewed. PT OT is on board. 08/05/2022 Patient is currently sitting in chair. Awake alert and oriented x3. Alert low back pain is better controlled. Patient is awake quiring assistance with ambulation and getting out of the bed. Patient had a bowel movement today. No complaints of abdominal pain. No nausea vomiting or diarrhea. Tolerating oral diet. No headache or dizziness or lightheadedness. Current medications reviewed. Objective - Vital Signs Vital signs: Vital Signs Temp 98.2 F 08/05/22 19:42 Pulse 77 08/05/22 19:42 Resp 18 08/05/22 19:42 BP 131/79 08/05/22 19:42 Pulse Ox 98 08/05/22 19:42 FiO2 Intake & Output 08/05/22 08/05/22 08/06/22 06:59 18:59 05:59 Output Total 110 Balance -110 Output: Urine 110 - Exam PHYSICAL EXAMINATION: Patient is lying in the bed comfortably, no acute distress, awake alert and oriented.. HEENT: Normocephalic. Neck is supple. Pupils reactive. Nostrils clear. Oral cavity is moist. Neck reveals no JVD, carotid bruits, or thyromegaly. CHEST EXAMINATION: Trachea is central. Symmetrical expansion. Lung campos clear to auscultation and percussion. CARDIAC: Normal S1, S2 with no gallops. No murmurs ABDOMEN: Soft. Bowel sounds present. Nontender. No organomegaly. No abdominal bruits. Extremities: reveal no edema. No clubbing or cyanosis Neurologically awake, alert, oriented x3 with well-coordinated movements. No focal deficits noted Skin: No rash or skin lesions. Psychiatric: Coperative. Nonsuicidal, Musculoskeletal: No joint swelling or deformity. Normal range of motion. - Labs CBC & Chem 7: 08/03/22 06:14 08/03/22 06:14 Assessment and Plan Assessment: S/p revision laminectomy and decompression L4-L5 and L3-L4 postoperative day 3 Leukocytosis likely post surgical inflammatory reaction History of coronary artery status post CABG Hypertension Hyperlipidemia History of [place] Osteoarthritis Hearing disorder/deafness Chronic back pain Prior history of smoking Plan: Patient will be continued pain management, bowel regimen and incentive spirometry. Continue with blood pressure medications including lisinopril , metoprolol. and continue with aspirin and statins. Continue with home medications and will follow closely further recommendation based on clinical course. Time with Patient: Greater than 30
--- NOTE | 2022-08-07 01:04 | P.PN ---
Subjective Progress Note Date: 08/06/22 Patient is a 77-year-old male with a known history of coronary disease status post CABG, hypertension, hyperlipidemia, hearing disorder/deafness, history of MD and prior history of smoking was admitted to the hospital for elective revision laminectomy and decompression L4-L5 L3-L4. 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 Patient tolerated the procedure well. Currently complains of lower back pain. No fever or chills. No cough or sputum production. No headache or dizziness or lightheadedness. Laboratory data showed WBC 13.7 hemoglobin 11.5 and platelets 163 Sodium 141 potassium 4.3 chloride 106 bicarb is 24.3 BUN 18.1 and creatinine 1.1 and calcium 8.5 08/04/2022 patient is status post surgery postoperative day 2 Currently sitting in the chair. Complains of back pain but improving. Currently on pain management. Patient is requiring 2 person assistance for chair and ambulation. Otherwise patient denied any diarrhea. No complaints abdominal pain. No nausea vomiting. No cough or sputum breath. No chest pain or shortness of breath. Laboratory data reviewed. PT OT is on board. 08/05/2022 Patient is currently sitting in chair. Awake alert and oriented x3. Alert low back pain is better controlled. Patient is awake quiring assistance with ambulation and getting out of the bed. Patient had a bowel movement today. No complaints of abdominal pain. No nausea vomiting or diarrhea. Tolerating oral diet. No headache or dizziness or lightheadedness. 08/06/2022 Patient is currently sitting in chair.. Tach and oriented. Patient seems to be lethargic today. No bowel movement today. Patient is able to pass flatus. No episodes of vomiting nausea. Able to tolerate oral diet. Patient is also having generalized debility and difficulty ambulation. PT OT consult and possible discharge to rehab. Patient's blood pressure is elevated with SBP went up to 190s this morning. Continue to monitor closely and titrate blood pressure medications as needed. Follow-up CBC and BMP tomorrow. Current medications reviewed. Objective - Vital Signs Vital signs: Vital Signs Temp 99.2 F 08/06/22 14:00 Pulse 71 08/06/22 14:00 Resp 16 08/06/22 14:00 BP 190/72 08/06/22 14:00 Pulse Ox 96 08/06/22 14:00 FiO2 Intake & Output 08/05/22 08/06/22 08/06/22 19:59 06:59 18:59 Output Total Balance Output: Urine Other: Voiding Method # Voids - Exam PHYSICAL EXAMINATION: Patient is lying in the bed comfortably, no acute distress, awake alert and oriented.. HEENT: Normocephalic. Neck is supple. Pupils reactive. Nostrils clear. Oral cavity is moist. Neck reveals no JVD, carotid bruits, or thyromegaly. CHEST EXAMINATION: Trachea is central. Symmetrical expansion. Lung campos clear to auscultation and percussion. CARDIAC: Normal S1, S2 with no gallops. No murmurs ABDOMEN: Soft. Bowel sounds present. Nontender. No organomegaly. No abdominal bruits. Extremities: reveal no edema. No clubbing or cyanosis Neurologically awake, alert, oriented x3 with well-coordinated movements. No focal deficits noted Skin: No rash or skin lesions. Psychiatric: Coperative. Nonsuicidal, Musculoskeletal: No joint swelling or deformity. Normal range of motion. - Labs CBC & Chem 7: 08/03/22 06:14 08/03/22 06:14 Assessment and Plan Assessment: S/p revision laminectomy and decompression L4-L5 and L3-L4 postoperative day 4 Leukocytosis likely post surgical inflammatory reaction History of coronary artery status post CABG Hypertension Hyperlipidemia History of MD Osteoarthritis Hearing disorder/deafness Chronic back pain Prior history of smoking Plan: Patient will be continued pain management, bowel regimen and incentive spirometry. Continue with blood pressure medications including lisinopril , metoprolol. and continue with aspirin and statins. Currently on normal saline at 50 cc/h. Continue with home medications and will follow closely further recommendation b ased on clinical course. Time with Patient: Greater than 30
[2022-08-07] MEDS: PANTOPRAZOLE 40 MG TABLET PO SCH (06:34)
[2022-08-07 08:43] LABS: Basophils # (A) 0.02 X 10*3/uL (0.00-0.10); Basophils % (A) 0.3 %; Eosinophils # (A) 0.46 X 10*3/uL (0.04-0.35); Eosinophils % (A) 7.3 %; HCT 30.8 % (39.6-50.0); HGB 10.3 g/dL (13.0-17.0); Immature Grans, Automated 0.5 %; Lymphocytes # (A) 0.97 X 10*3/uL (0.90-5.00); Lymphocytes % (A) 15.5 %; MCHC 33.4 g/dL (32.0-37.0); MCV 89.8 fL (80.0-97.0); Mean Platelet Volume 10.5 fL (9.5-12.2); Monocytes # (A) 0.62 X 10*3/uL (0.20-1.00); Monocytes % (A) 9.9 %; NRBC Per 100 WBC 0 /100 WBCS (0.0-0.0); Neutrophils # (A) 4.16 X 10*3/uL (1.80-7.70); Neutrophils % (A) 66.5 %; Platelet Count 185 X 10*3/uL (140-440); RBC 3.43 X 10*6/uL (4.40-5.60); RDW 12.5 % (11.5-14.5); WBC 6.26 X 10*3/uL (4.50-10.00)
[2022-08-07 09:09] LABS: African American GFR (CKD) 96.5 (60.0-200.0); Anion Gap 7.4 mmol/L (10.00-18.00); BUN/Creat Ratio 16.56 Ratio (12.00-20.00); Blood Urea Nitrogen 14.9 mg/dL (9.0-27.0); Calcium 8.7 mg/dL (8.7-10.3); Carbon Dioxide 25.6 mmol/L (20.0-27.5); Non-African American GFR(CKD) 83.3 (60.0-200.0); Potassium 3.9 mmol/L (3.5-5.5)
[2022-08-07 09:11] VITALS: BP 165/70; PULSE 66; RESP 16; TEMP 98.2
[2022-08-07] MEDS: SENNOSIDES-DOCUSATE SODIUM 1 EACH TAB PO SCH (09:38)
[2022-08-07] MEDS: ASPIRIN 81 MG PO SCH (09:38)
[2022-08-07] MEDS: METOPROLOL TARTRATE 50 MG TAB PO SCH (09:38)
[2022-08-07] MEDS: MULTIVITAMINS, THERA 1 EACH TAB PO SCH (09:38)
[2022-08-07] MEDS: lisinopriL 20 MG TAB PO SCH (09:38)
[2022-08-07] MEDS: PSYLLIUM HUSK 100% 6 GM PACKET PO SCH (09:39)
[2022-08-07] MEDS: LORATADINE 10 MG TAB PO SCH (09:39)
--- NOTE | 2022-08-07 10:20 | P.DS ---
Providers Date of admission: 08/04/22 12:07 Expected date of discharge: 08/07/22 Attending physician: Ben Kramer Consults: 08/02/22 14:02 Consult Physician Routine Consulting Provider: Justin Laurent Consult Reason/Comments: Medical management Do you want consulting provider notified?: Yes Primary care physician: Olga Bird - Discharge Diagnosis(es) (1) Status post lumbar spinal fusion Current Visit: Yes Status: Acute (2) History of lumbar laminectomy Current Visit: Yes Status: Acute (3) Lumbar back pain with radiculopathy affecting lower extremity Current Visit: Yes Status: Acute (4) Neurogenic claudication due to lumbar spinal stenosis Current Visit: Yes Status: Acute (5) Lumbar facet arthropathy Current Visit: Yes Status: Acute (6) Lumbar degenerative disc disease Current Visit: Yes Status: Acute (7) Spondylolisthesis at L4-L5 level Current Visit: Yes Status: Acute (8) History of coronary artery bypass graft Current Visit: Yes Status: Acute (9) Coronary artery disease Current Visit: No Status: Acute (10) History of myocardial infarction Current Visit: No Status: Acute (11) Hyperlipidemia Current Visit: No Status: Acute (12) Hypertension Current Visit: No Status: Acute Hospital Course: This is a pleasant 77-year-old male who presented with L4-5 spondylolisthesis and recurrent stenosis, L3-4 spinal stenosis, low back pain, lumbar facet arthritis, lower extremity radiculopathy, neurogenic claudication, lumbar degenerative disc disease, and history of L4-5 laminectomy and decompression who failed outpatient conservative therapy. He was admitted for an L3-4 and L4-5 minimally invasive posterior lateral decompression and fusion with transforaminal lumbar interbody fusion and revision L4-5 laminectomy. The patient tolerated the procedure well and did well postoperatively. He initially was progressing slowly but progressed well over the weekend. He was finally able to have a bowel movement and feels significantly better since that time. He is not currently complaining of a significant low back pain or lower extremity radiculopathy. He feels he is ready for discharge home today. He does need some home care. He has been utilizing a walker to aid in ambulation. He does have a walker at home. Condition on day of discharge stable. Patient will be discharged home with home care. This has been discussed with case management. Patient was cleared preoperatively for surgery by Dr. Bird. Patient currently denies any nausea, vomiting, fever, or chills. Patient is eating and voiding freely without difficulty. Dressings have been removed with the surgical sites. Surgical sites are clean, dry, and intact with no drainage. Patient may shower without dressing is intact at this time. Patient should refrain from driving until at least after their first follow-up appointment in the office. Patient should avoid excessive bending, lifting, and twisting; no lifting greater than 10 pounds. Patient is clear for discharge from orthopedic spine standpoint. Patient may follow-up with Rosales Torres PA-C or Dr. Linwood Kramer at [facility] in 2-3 weeks following discharge. Patient must be cleared by medicine prior to discharge home. MAPS was previously reviewed. An "Opiod Start Talking" Form has been signed and placed in the patient's chart. A prescription has been written for Patient is also given a prescription for Senokot-S, take 1 tab twice a day as needed for constipation, dispensed #60. Medications have been sent to the [facility] pharmacy located within [facility]. Patient's other medical diagnoses include hypertension, hyperlipidemia, history of myocardial infarction, and history of coronary artery disease status post CABG Physical Exam on day of discharge: Status post surgical day number 5 Patient is awake, alert, and oriented 3 Vital signs stable Good chest excursion with deep inspiration and expiration Abdomen soft nontender Dorsiflexion, plantarflexion, and extensor hallucis longus positive sustained bilaterally No signs or symptoms of DVT; no calf pain; pneumatic cuffs not currently intact bilateral lower extremities Optifoam dressings are clean, dry, and intact over the lumbar spine and right iliac crest; no erythema, purulence, or signs of infection Dressings are moving physical examination. No drainage from the surgical sites. Mild generalized swelling around the surgical sites of the lumbar spine Some mild bruising around the surgical sites of the lumbar spine Neurovascularly intact bilaterally lower extremities Procedures: L3-4 and L4-5 minimally invasive posterior lateral decompression and fusion with transforaminal lumbar interbody fusion and revision L4-5 laminectomy Patient Condition at Discharge: Stable Plan - Discharge Summary Discharge Rx Participant: No New Discharge Prescriptions: New HYDROcodone/APAP 5-325MG [Hobbs 5-325] 1 tab PO Q4HR PRN 3 Days #42 tab PRN Reason: Pain Sennosides-Docusate Sodium [Senokot-S] 1 tab PO BID PRN #60 tablet PRN Reason: Constipation No Action Esomeprazole Magnesium [NexIUM] 40 mg PO DAILY Lisinopril [Zestril] 40 mg PO DAILY Aspirin 81 mg PO DAILY Metoprolol Tartrate [Lopressor] 100 mg PO BID Multivitamin [Men's Multi-Vitamin] 1 tab PO DAILY Montelukast [Singulair] 10 mg PO HS Psyllium Husk [Metamucil] 0.4 gm PO BID Ipratropium [place] 0.06%Nasal [Atrovent Nasal 0.06%] 1 spray EA NOSTRIL DAILY Cetirizine HCl [Zyrtec] 10 mg PO DAILY Atorvastatin [Lipitor] 40 mg PO HS Acetaminophen [Tylenol] 500 mg PO Q4-6H PRN PRN Reason: Pain Discharge Medication List Aspirin 81 mg PO DAILY 06/19/14 [History] Esomeprazole Magnesium [NexIUM] 40 mg PO DAILY 06/19/14 [History] Lisinopril [Zestril] 40 mg PO DAILY 06/19/14 [History] Metoprolol Tartrate [Lopressor] 100 mg PO BID 06/19/14 [History] Multivitamin [Men's Multi-Vitamin] 1 tab PO DAILY 06/19/14 [History] Atorvastatin [Lipitor] 40 mg PO HS 03/02/22 [History] Cetirizine HCl [Zyrtec] 10 mg PO DAILY 03/02/22 [History] Ipratropium [place] 0.06%Nasal [Atrovent Nasal 0.06%] 1 spray EA NOSTRIL DAILY 03/02/22 [History] Montelukast [Singulair] 10 mg PO HS 03/02/22 [History] Psyllium Husk [Metamucil] 0.4 gm PO BID 03/02/22 [History] Acetaminophen [Tylenol] 500 mg PO Q4-6H PRN 03/06/22 [History] HYDROcodone/APAP 5-325MG [Hobbs 5-325] 1 tab PO Q4HR PRN 3 Days #42 tab 08/06/22 [Rx] Sennosides-Docusate Sodium [Senokot-S] 1 tab PO BID PRN #60 tablet 11/07/22 [Rx] Follow up Appointment(s)/Referral(s): Ben Kramer DO [Doctor of Osteopathic Medicine] - 2 Weeks [facility], [NON-STAFF] - 1-2 Days Activity/Diet/Wound Care/Special Instructions: 1. Keep site clean. 2. May shower without a dressing intact over his surgical sites at this time. 3. Do not soak in a tub. 4. Leave glue intact with the lumbar surgical sites and over the right iliac crest and allow it to fray off on its own. 5. May ambulate as tolerated. 6. May utilize walker to aid in ambulation as needed; patient has walker at home. 7. Avoid heavy or rigorous activity. 8. No repetitive bending twisting or lifting. 9. No overhead work. 10. Take medications as prescribed.. Discharge Disposition: HOME WITH HOME HEALTH SERVICES
[2022-08-07] MEDS: LACTATED RINGERS 1,000 ML IV SCH (10:44)
[2022-08-07] MEDS: IPRATROPIUM BROMIDE 0.06% NASAL SPRAY (15 ML) EA NOSTRIL SCH (10:44)
[2022-08-07] MEDS: SODIUM CHLORIDE 0.9% 1,000 ML IV SCH (13:40)
== END 2022-08-07 14:23 | disposition home health service (06) | DRG 460 ==
LOC: OR 07:43 → 4SSUR 14:06 → OR 08-03 07:43 → OBSVTOIN 08-04 12:07
PROVIDERS: ADMIT Orthopaedic Surgery Orthopaedic Surgery of the Spine; ATTEND Orthopaedic Surgery Orthopaedic Surgery of the Spine
PROC: 01NB0ZZ Release Lumbar Nerve, Open Approach (ICD-10-PCS; 2022-08-02)
PROC: 0SB20ZZ Excision of Lumbar Vertebral Disc, Open Approach (ICD-10-PCS; 2022-08-02)
PROC: 0QU007Z Supplement Lumbar Vertebra with Autologous Tissue Substitute, Open Approach (ICD-10-PCS; 2022-08-02)
PROC: 079T3ZX Drainage of Bone Marrow, Percutaneous Approach, Diagnostic (ICD-10-PCS; 2022-08-02)
PROC: 30243H0 Transfusion of Autologous Whole Blood into Central Vein, Percutaneous Approach (ICD-10-PCS; 2022-08-02)
PROC: 0SG10AJ Fusion of 2 or more Lumbar Vertebral Joints with Interbody Fusion Device, Posterior Approach, Anterior Column, Open Approach (ICD-10-PCS; principal; 2022-08-02 08:45)
DX: M43.16 Spondylolisthesis, lumbar region (principal); I10 Essential (primary) hypertension; D72.828 Other elevated white blood cell count; M47.26 Other spondylosis with radiculopathy, lumbar region; M51.16 Intervertebral disc disorders with radiculopathy, lumbar region; M48.062 Spinal stenosis, lumbar region with neurogenic claudication; E78.5 Hyperlipidemia, unspecified; H91.90 Unspecified hearing loss, unspecified ear; I25.10 Atherosclerotic heart disease of native coronary artery without angina pectoris; G89.29 Other chronic pain; T50.906A Underdosing of unspecified drugs, medicaments and biological substances, initial encounter; F41.9 Anxiety disorder, unspecified; R26.2 Difficulty in walking, not elsewhere classified; R53.81 Other malaise; Z28.311 Partially vaccinated for COVID-19; Z87.891 Personal history of nicotine dependence; Z95.1 Presence of aortocoronary bypass graft; I25.2 Old myocardial infarction; Z95.5 Presence of coronary angioplasty implant and graft; Z79.82 Long term (current) use of aspirin; Z79.899 Other long term (current) drug therapy; Z88.6 Allergy status to analgesic agent; Z88.8 Allergy status to other drugs, medicaments and biological substances; Z91.138 Patient's unintentional underdosing of medication regimen for other reason
CPT/HCPCS: 72100; 80048; 85025; 86850; 86891; 86900; 86901